=== PATIENT | female | born 1935 | race Caucasian/White ===

== ENCOUNTER 2020-03-07 09:36 | Observation (INO) | payer MEDICARE, BC ==
[2020-03-07] MEDS ORDERED: Sodium Chloride 0.9% 1,000 ML IV ONE (09:42)
[2020-03-07] MEDS ORDERED: Sodium Chloride 0.9% 10 ML Syringe FLUSH PRN (09:42)
[2020-03-07] MEDS ORDERED: Sodium Chloride 0.9% 2.5 ML Syringe FLUSH PRN (09:42)
[2020-03-07] MEDS ORDERED: Pantoprazole 40 MG in Sodium Chloride 0.9% 20 ML IVPUSH ONE (09:44)
--- NOTE | 2020-03-07 09:46 | EDM.PDOC ---
ED HPI GENERAL MEDICAL PROBLEM - General Chief Complaint: Gastrointestinal Problem Stated Complaint: RECTAL BLEEDING Time Seen by Provider: 03/07/20 09:38 - History of Present Illness INITIAL COMMENTS - FREE TEXT/NARRATIVE: 85-year-old female presents with rectal bleeding since yesterday. She had 3 episodes of dark colored diarrhea yesterday, associated with lower abdominal pain that is dull, mild, constant, with no alleviating factors. Denies fever, chills, nausea, vomiting, dysuria, back pain, chest pain, shortness of breath. ROS: A 10-point review of systems, other than pertinent positives and negatives as stated per HPI, is otherwise negative PHYSICAL EXAM General: AOx4, GCS = 15, No distress HEENT: dry mucous membrane, no pale conjunctiva Neck: supple, no meningismus, no Kernig or Brudzinski Cardiac: S1S2 RRR Respiratory: CTAB, no crackles or rales, no wheezing Abdomen: Soft, left lower quadrant tender, no rebound or guarding, nondistended , no pulsatile mass. Back: nontender Musculoskeletal: NVI distally, no deformity Neuro: No focal deficits, CN 2 - 12 WNL. MEDICAL DECISION MAKING: I reviewed the patients past medical records, lab and radiographic findings. I discussed the case with family members. My differential diagnosis included: Diverticulosis, colitis, obstruction. lower abdomen Pain Score (Numeric/FACES): 3 - Related Data Allergies Allergy/AdvReac Type Severity Reaction Status Date / Time Penicillins Allergy Other Verified 03/07/20 14:28 Home Meds: Home Meds Aspirin 175 mg PO DAILY 08/19/18 [History] Melatonin 3 mg PO BEDTIME 08/19/18 [History] Zolpidem [Ambien] 1 dose PO BEDTIME PRN 03/07/20 [History] Past Medical History - Past Health History Medical/Surgical History: Denies Medical/Surgical History - Infectious Disease History Infectious Disease History: Reports: None Social & Family History - Family History Family Medical History: Noncontributory - Caffeine Use Caffeine Use: Reports: None ED ROS GENERAL - Review of Systems Review Of Systems: See Below (see dictation) ED EXAM, GI/ABD - Physical Exam Exam: See Below (See dictation) Course - Vital Signs Last Recorded V/S: Last Vital Signs Temp 98.6 F 03/07/20 14:20 Pulse 77 03/07/20 14:20 Resp 16 03/07/20 14:20 BP 133/61 03/07/20 14:20 Pulse Ox 98 03/07/20 14:20 - Orders/Labs/Meds Orders: Active Orders 24 hr Category Date Time Status Ciprofloxacin in D5W [Cipro in D5W 400 MG/200 ML] 400 Med 03/07/20 12:30 Active mg Premix Bag 1 bag IV Q12H Sodium Chloride 0.9% [Saline Flush] Med 03/07/20 09:42 Active 10 ml FLUSH ASDIRECTED PRN Sodium Chloride 0.9% [Saline Flush] Med 03/07/20 09:42 Active 2.5 ml FLUSH ASDIRECTED PRN Saline Lock Insert [OM.PC] Stat Oth 03/07/20 09:42 Ordered Medication Orders Albuterol/Ipratropium (Duoneb 3.0-0.5 Mg/3 Ml) 3 ml NEB Q4HRRT PRN PRN Reason: Shortness Of Breath/wheezing Ciprofloxacin/Dextrose 400 mg/ (Premix) 200 mls @ 200 mls/hr IV Q12H RHETT Last Admin: 03/07/20 12:51 Dose: 200 mls/hr Lactated Ringer's (Ringers, Lactated) 1,000 mls @ 125 mls/hr IV ASDIRECTED RHETT Last Admin: 03/07/20 14:46 Dose: 125 mls/hr Pantoprazole Sodium 40 mg/ (Sodium Chloride) 10 mls @ 300 mls/hr IV BID RHETT Metronidazole 500 mg/ Premix 100 mls @ 100 mls/hr IV Q8H RHETT Ondansetron HCl (Zofran) 4 mg IVPUSH Q4H PRN PRN Reason: Nausea/Vomiting Sodium Chloride (Saline Flush) 10 ml FLUSH ASDIRECTED PRN PRN Reason: Keep Vein Open Last Admin: 03/07/20 10:05 Dose: 10 ml Sodium Chloride (Saline Flush) 2.5 ml FLUSH ASDIRECTED PRN PRN Reason: Keep Vein Open Last Admin: 03/07/20 10:05 Dose: 2.5 ml Labs: Laboratory Tests 03/07/20 03/07/20 03/07/20 Range/Units 10:05 10:05 11:39 WBC 18.72 H (4.0-11.0) K/uL RBC 5.10 (4.30-5.90) M/uL Hgb 15.7 (12.0-16.0) g/dL Hct 47.6 H (36.0-46.0) % MCV 93.3 (80.0-98.0) fL MCH 30.8 (27.0-32.0) pg MCHC 33.0 (31.0-37.0) g/dL RDW Std Deviation 43.8 (28.0-62.0) fl RDW Coeff of [place] 13 (11.0-15.0) % Plt Count 402 H (150-400) K/uL MPV 11.00 (7.40-12.00) fL Neut % (Auto) 83.6 H (48.0-80.0) % Lymph % (Auto) 5.9 L (16.0-40.0) % [place] % (Auto) 10.4 (0.0-15.0) % Eos % (Auto) 0.0 (0.0-7.0) % Baso % (Auto) 0.1 (0.0-1.5) % Neut # (Auto) 15.7 H (1.4-5.7) K/uL Lymph # (Auto) 1.1 (0.6-2.4) K/uL [place] # (Auto) 1.9 H (0.0-0.8) K/uL Eos # (Auto) 0.0 (0.0-0.7) K/uL Baso # (Auto) 0.0 (0.0-0.1) K/uL Nucleated RBC % 0.0 /100WBC Nucleated RBCs # 0 K/uL Sodium 135 L (136-145) mmol/L Potassium 3.9 (3.5-5.1) mmol/L Chloride 99 (98-107) mmol/L Carbon Dioxide 23.2 (21.0-32.0) mmol/L BUN 23 H (7.0-18.0) mg/dL Creatinine 1.3 H (0.6-1.0) mg/dL Est Cr Clr Drug Dosing 24.01 mL/min Estimated GFR (MDRD) 38.7 ml/min Glucose 188 H (74-106) mg/dL Calcium 8.7 (8.5-10.1) mg/dL Total Bilirubin 1.5 H (0.2-1.0) mg/dL AST 16 (15-37) IU/L ALT 21 (14-63) IU/L Alkaline Phosphatase 68 (46-116) U/L Total Protein 6.5 (6.4-8.2) g/dL Albumin 3.2 L (3.4-5.0) g/dL Globulin 3.3 (2.6-4.0) g/dL Albumin/Globulin Ratio 1.0 (0.9-1.6) Lipase 27 L (73-393) U/L Urine Color YELLOW Urine Appearance CLEAR Urine pH 5.0 (5.0-8.0) Ur Specific [place] 1.020 (1.001-1.035) Urine Protein NEGATIVE (NEGATIVE) mg/dL Urine Glucose (UA) NEGATIVE (NEGATIVE) mg/dL Urine Ketones TRACE H (NEGATIVE) mg/dL Urine Occult Blood NEGATIVE (NEGATIVE) Urine Nitrite NEGATIVE (NEGATIVE) Urine Bilirubin NEGATIVE (NEGATIVE) Urine Urobilinogen 0.2 (<2.0) EU/dL Ur Leukocyte Esterase NEGATIVE (NEGATIVE) Urine RBC 0-1 (0-2/HPF) Urine WBC 1-3 (0-5/HPF) Ur Epithelial Cells FEW (NONE-FEW) Urine Bacteria FEW (NEGATIVE) Meds: Medications Generic Name Dose Route Start Last Admin Trade Name Freq PRN Reason Stop Dose Admin Albuterol/Ipratropium 3 ml 03/07/20 14:00 Duoneb 3.0-0.5 Mg/3 Ml NEB Q4HRRT PRN Shortness Of Breath/wheezing Ciprofloxacin/Dextrose 400 mg/ 200 mls @ 200 mls/hr 03/07/20 12:30 03/07/20 12:51 Premix IV 200 mls/hr Q12H RHETT Administration Lactated Ringer's 1,000 mls @ 125 mls/hr 03/07/20 14:00 03/07/20 14:46 Ringers, Lactated IV 125 mls/hr ASDIRECTED RHETT Administration Pantoprazole Sodium 40 mg/ 10 mls @ 300 mls/hr 03/07/20 21:00 Sodium Chloride IV BID RHETT Metronidazole 500 mg/ Premix 100 mls @ 100 mls/hr 03/07/20 21:00 IV Q8H RHETT Ondansetron HCl 4 mg 03/07/20 14:00 Zofran IVPUSH Q4H PRN Nausea/Vomiting Sodium Chloride 10 ml 03/07/20 09:42 03/07/20 10:05 Saline Flush FLUSH 10 ml ASDIRECTED PRN Administration Keep Vein Open Sodium Chloride 2.5 ml 03/07/20 09:42 03/07/20 10:05 Saline Flush FLUSH 2.5 ml ASDIRECTED PRN Administration Keep Vein Open Discontinued Medications Generic Name Dose Route Start Last Admin Trade Name Freq PRN Reason Stop Dose Admin Sodium Chloride 1,000 mls @ 999 mls/hr 03/07/20 09:42 03/07/20 10:05 Normal Saline IV 03/07/20 10:42 999 mls/hr BOLUS ONE Administration Pantoprazole Sodium 40 mg/ 20 mls @ 420 mls/hr 03/07/20 09:44 03/07/20 10:05 Sodium Chloride IVPUSH 03/07/20 09:46 420 mls/hr ONETIME ONE Administration Metronidazole 500 mg/ Premix 100 mls @ 100 mls/hr 03/07/20 12:29 03/07/20 13: 52 IV 03/07/20 13:28 100 mls/hr ONETIME ONE Administration Metronidazole 500 mg/ Premix 100 mls @ 100 mls/hr 03/07/20 20:00 IV Q8H RHETT Iopamidol 61 ml 03/07/20 11:39 03/07/20 11:39 Isovue Multipack-370 (76%) IVPUSH 03/07/20 11:40 61 ml ONETIME ONE Administration - Re-Assessments/Exams Free Text/Narrative Re-Assessment/Exam: 03/07/20 12:35 -case discussed with Dr. Garcia, she agrees to assume care at this point. Admit to obs/telemetry with consult to Cole Skinner. Her documentation supersedes all other documentation on this patient with regard to any conflicts or discrepancies from this point forward. Any emergency conditions have been treated to the ability of the ED prior to admission. Paging Dr. Skinner now. Departure - Departure Time of Disposition: 11:10 Disposition: Refer to Observation Condition: Good Clinical Impression: Colitis, GI bleed - Discharge Information Sepsis Event Note - Focused Exam Vital Signs: Vital Signs Temp Pulse Resp BP Pulse Ox 03/07/20 09:49 96.2 F L 88 16 137/70 98 Date Exam was Performed: 03/07/20 Time Exam was Performed: 16:12 - My Orders Last 24 Hours: My Active Orders 03/07/20 09:42 Sodium Chloride 0.9% [Saline Flush] 10 ml FLUSH ASDIRECTED PRN Sodium Chloride 0.9% [Saline Flush] 2.5 ml FLUSH ASDIRECTED PRN Saline Lock Insert [OM.PC] Stat 03/07/20 12:30 Ciprofloxacin in D5W [Cipro in D5W 400 MG/200 ML] 400 mg Premix Bag 1 bag IV Q12H - Assessment/Plan Last 24 Hours: My Active Orders 03/07/20 09:42 Sodium Chloride 0.9% [Saline Flush] 10 ml FLUSH ASDIRECTED PRN Sodium Chloride 0.9% [Saline Flush] 2.5 ml FLUSH ASDIRECTED PRN Saline Lock Insert [OM.PC] Stat 03/07/20 12:30 Ciprofloxacin in D5W [Cipro in D5W 400 MG/200 ML] 400 mg Premix Bag 1 bag IV Q12H
[2020-03-07 10:48] LABS: CARBON DIOXIDE,CO2 23.2 mmol/L (21.0-32.0); POTASSIUM,K 3.9 mmol/L (3.5-5.1)
[2020-03-07] MEDS ORDERED: Iopamidol 755 MG/ML 500 ML Multipack Bottle IVPUSH ONE (11:39)
--- NOTE | 2020-03-07 12:08 | CT ---
CT abdomen and pelvis Technique: Multiple axial sections were obtained from above the dome of the diaphragm inferiorly through the pubic symphysis. Intravenous contrast was utilized. No oral contrast has been given. Findings: Stomach is intrathoracic in location compatible with diaphragmatic hernia. Visualized lung bases show nothing acute. Liver contains no focal abnormality. Spleen appears within normal limits. Adrenal glands show no nodule. Pancreas shows no discrete abnormality. Gallstones are seen within the gallbladder. Bowel wall thickening is seen within the sigmoid colon and descending colon with stool noted within the right and transverse colon. Findings are compatible with nonspecific colitis. Numerous diverticuli are seen within the sigmoid colon. Aorta shows atherosclerotic change without aneurysm. Atherosclerotic change continues into the iliac vessels. Bladder appears to be dilated. Several diverticuli are seen off the bladder with largest on the left side measuring 6.4 cm in size. Kidneys show symmetric contrast enhancement without hydronephrosis or mass. Minimal fluid is noted around the liver and spleen which is most likely reactive from the colonic process. Bone window settings were reviewed which show scattered degenerative change within the spine as well as within both hips. No acute osseous finding is appreciated. Impression: 1. Bowel wall thickening within the sigmoid and descending colon. This is compatible with a nonspecific colitis. 2. Numerous diverticuli seen within the sigmoid colon. 3. Dilated and urine filled bladder with bladder diverticuli. 4. Minimal fluid around the liver and spleen most likely reactive from the colonic process. 5. Other findings as noted above which are nonacute. Diagnostic code #3 This report was dictated in MDT
[2020-03-07] MEDS ORDERED: metroNIDAZOLE/Normal Saline 500 MG in Premix Bag 1 BAG IV ONE (12:29)
[2020-03-07] MEDS: Ciprofloxacin in D5W 400 MG in Premix Bag 1 BAG IV SCH ×4 (12:51→23:38)
[2020-03-07] MEDS ORDERED: Albuterol/Ipratropium 3.0-0.5 MG/3 ML Neb Soln NEB PRN (14:00)
[2020-03-07] MEDS ORDERED: Ondansetron 4 MG/2 ML SDV IVPUSH PRN (14:00)
--- NOTE | 2020-03-07 14:10 | PCM.HP.2 ---
H&P History of Present Illness - General Date of Service: 03/07/20 Admit Problem/Dx: Admission Diagnosis/Problem Admission Diagnosis/Problem Colitis - History of Present Illness Initial Comments - Free Text/Narative: Patient is a 85 y/o F with no PMH of recent colitis, treated with PO antibiotics in nov. Patient states thaty for past 2 days she has been having vague abdominal pain, she had an episode of explosive dirrhea which was non- bloody, followed by bloody stools. She describes the blood as dark red mixed with bright red. Patient came in to ER for further evalaution. Patient states she has slight Nausea but no vomitting. Abdominal pain is 3-4 in intensity. In the ER labs were mostly benign with stable hemoglobin. Hemodynamically she was stable. CT scan of abdomen was significant for findings suggestive of colitis. LPatient recicved IV fluids and IV antibiotics and was admitted for further management of colitis and GI bleeding. Patient denied chest pain, syncope, prior bleeding episodes. She has had colonoscopy almost 15 years back. lower abdomen Pain Score (Numeric/FACES): 3 - Related Data Allergies/Adverse Reactions: Allergies Allergy/AdvReac Type Severity Reaction Status Date / Time Penicillins Allergy Other Verified 03/07/20 14:28 Home Medications: Home Meds Aspirin 175 mg PO DAILY 08/19/18 [History] Melatonin 3 mg PO BEDTIME 08/19/18 [History] Zolpidem [Ambien] 1 dose PO BEDTIME PRN 03/07/20 [History] Past Medical History - Past Health History Medical/Surgical History: Denies Medical/Surgical History HEENT History: Reports: Impaired Vision Cardiovascular History: Reports: None Respiratory History: Reports: None Gastrointestinal History: Reports: None Genitourinary History: Reports: None RIVET HEATER GAS History: Reports: None Musculoskeletal History: Reports: Arthritis Neurological History: Reports: None Psychiatric History: Reports: None Endocrine/Metabolic History: Reports: None Hematologic History: Reports: Other (See Below) Other Hematologic History: low potassium in past Immunologic History: Reports: None Oncologic (Cancer) History: Reports: None Dermatologic History: Reports: None - Infectious Disease History Infectious Disease History: Reports: None - Past Surgical History Head Surgeries/Procedures: Reports: None HEENT Surgical History: Reports: None Cardiovascular Surgical History: Reports: None Respiratory Surgical History: Reports: None GI Surgical History: Reports: None Female Surgical History: Reports: None Endocrine Surgical History: Reports: None Neurological Surgical History: Reports: None Musculoskeletal Surgical History: Reports: None Oncologic Surgical History: Reports: None Dermatological Surgical History: Reports: None Social & Family History - Family History Family Medical History: Noncontributory - Tobacco Use Smoking Status *Q: Never Smoker Second Hand Smoke Exposure: No - Caffeine Use Caffeine Use: Reports: None - Recreational Drug Use Recreational Drug Use: No H&P Review of Systems - Review of Systems: Review Of Systems: See Below General: Denies: Fever, Chills, Malaise, Weakness, Fatigue HEENT: Denies: Dysphasia, Glasses, Headaches Pulmonary: Denies: Shortness of Breath, Wheezing, Pleuritic Chest Pain Cardiovascular: Denies: Chest Pain, Palpitations, Dyspnea on Exertion Gastrointestinal: Reports: Anorexia, Black Stool, Bloody Stool, Diarrhea, Decreased Appetite. Denies: Abdominal Pain, Constipation, Difficulty Swallowing , Distension, Hematemesis Genitourinary: Denies: Dysuria, Frequency, Burning Musculoskeletal: Denies: Neck Pain, Shoulder Pain, Arm Pain Skin: Denies: Cyanosis, Jaundice, Mottled Psychiatric: Denies: Confusion, Depression, Mood Lability Neurological: Denies: Confusion, Dizziness, Headache Hematologic/Lymphatic: Denies: Anemia, Easy Bleeding, Easy Bruising Exam - Exam Exam: See Below - Vital Signs Vital Signs: Last Vital Signs Temp 35.7 C L 03/07/20 09:49 Pulse 76 03/07/20 13:41 Resp 16 03/07/20 13:41 BP 127/53 L 03/07/20 13:41 Pulse Ox 98 03/07/20 13:41 Weight: 49.895 kg - Exam General: Alert, Oriented Neck: Supple, Trachea Midline Lungs: Clear to Auscultation, Normal Respiratory Effort Cardiovascular: Regular Rate, Regular Rhythm GI/Abdominal Exam: Normal Bowel Sounds, Soft, Tender Peripheral Pulses: 3+: Dorsalis Pedis (L), Dorsalis Pedis (R) - Patient Data Lab Results Last 24 hrs: Laboratory Results - last 24 hr 03/07/20 03/07/20 03/07/20 Range/Units 10:05 10:05 11:39 WBC 18.72 H (4.0-11.0) K/uL RBC 5.10 (4.30-5.90) M/uL Hgb 15.7 (12.0-16.0) g/dL Hct 47.6 H (36.0-46.0) % MCV 93.3 (80.0-98.0) fL MCH 30.8 (27.0-32.0) pg MCHC 33.0 (31.0-37.0) g/dL RDW Std Deviation 43.8 (28.0-62.0) fl RDW Coeff of [place] 13 (11.0-15.0) % Plt Count 402 H (150-400) K/uL MPV 11.00 (7.40-12.00) fL Neut % (Auto) 83.6 H (48.0-80.0) % Lymph % (Auto) 5.9 L (16.0-40.0) % [place] % (Auto) 10.4 (0.0-15.0) % Eos % (Auto) 0.0 (0.0-7.0) % Baso % (Auto) 0.1 (0.0-1.5) % Neut # (Auto) 15.7 H (1.4-5.7) K/uL Lymph # (Auto) 1.1 (0.6-2.4) K/uL [place] # (Auto) 1.9 H (0.0-0.8) K/uL Eos # (Auto) 0.0 (0.0-0.7) K/uL Baso # (Auto) 0.0 (0.0-0.1) K/uL Nucleated RBC % 0.0 /100WBC Nucleated RBCs # 0 K/uL Sodium 135 L (136-145) mmol/L Potassium 3.9 (3.5-5.1) mmol/L Chloride 99 (98-107) mmol/L Carbon Dioxide 23.2 (21.0-32.0) mmol/L BUN 23 H (7.0-18.0) mg/dL Creatinine 1.3 H (0.6-1.0) mg/dL Est Cr Clr Drug Dosing 24.01 mL/min Estimated GFR (MDRD) 38.7 ml/min Glucose 188 H (74-106) mg/dL Calcium 8.7 (8.5-10.1) mg/dL Total Bilirubin 1.5 H (0.2-1.0) mg/dL AST 16 (15-37) IU/L ALT 21 (14-63) IU/L Alkaline Phosphatase 68 (46-116) U/L Total Protein 6.5 (6.4-8.2) g/dL Albumin 3.2 L (3.4-5.0) g/dL Globulin 3.3 (2.6-4.0) g/dL Albumin/Globulin Ratio 1.0 (0.9-1.6) Lipase 27 L (73-393) U/L Urine Color YELLOW Urine Appearance CLEAR Urine pH 5.0 (5.0-8.0) Ur Specific [place] 1.020 (1.001-1.035) Urine Protein NEGATIVE (NEGATIVE) mg/dL Urine Glucose (UA) NEGATIVE (NEGATIVE) mg/dL Urine Ketones TRACE H (NEGATIVE) mg/dL Urine Occult Blood NEGATIVE (NEGATIVE) Urine Nitrite NEGATIVE (NEGATIVE) Urine Bilirubin NEGATIVE (NEGATIVE) Urine Urobilinogen 0.2 (<2.0) EU/dL Ur Leukocyte Esterase NEGATIVE (NEGATIVE) Urine RBC 0-1 (0-2/HPF) Urine WBC 1-3 (0-5/HPF) Ur Epithelial Cells FEW (NONE-FEW) Urine Bacteria FEW (NEGATIVE) Result Diagrams: 03/07/20 10:05 03/07/20 10:05 Sepsis Event Note - Evaluation Sepsis Screening Result: No Definite Risk - Focused Exam Vital Signs: Vital Signs Temp Pulse Resp BP Pulse Ox 03/07/20 13:41 76 16 127/53 L 98 03/07/20 12:53 76 16 119/67 97 03/07/20 09:49 35.7 C L 88 16 137/70 98 Date Exam was Performed: 03/07/20 Time Exam was Performed: 19:42 - Problem List (1) Colitis SNOMED Code(s): 36088265 ICD Code: K52.9 - NONINFECTIVE GASTROENTERITIS AND COLITIS, UNSPECIFIED Status: Acute Current Visit: Yes (2) GI bleed SNOMED Code(s): 34095858 ICD Code: K92.2 - GASTROINTESTINAL HEMORRHAGE, UNSPECIFIED Status: Acute Current Visit: Yes Problem List Initiated/Reviewed/Updated: Yes Orders Last 24hrs: Active Orders 24 hr Category Date Time Status Admission Status [Patient Status] [ADT] Stat ADT 03/07/20 12:31 Active Ambulate [RC] ASDIRECTED Care 03/07/20 14:00 Active Ambulate [RC] PER UNIT ROUTINE Care 03/07/20 14:02 Active Notify Provider Consults [RC] ASDIRECTED Care 03/07/20 14:06 Active Oxygen Therapy [RC] PRN Care 03/07/20 14:00 Active Pulse Oximetry [RC] PRN Care 03/07/20 14:01 Active RT Aerosol Therapy [RC] ASDIRECTED Care 03/07/20 14:05 Active VTE/DVT Education [RC] PER UNIT ROUTINE Care 03/07/20 14:00 Active Vital Signs [RC] Q4H Care 03/07/20 14:00 Active Consult to Physician [CONS] Routine Cons 03/07/20 14:00 Active Nothing per Oral Now Diet [DIET] Diet 03/07/20 Breakfast Active CULTURE BLOOD [BC] Stat Lab 03/07/20 14:10 Ordered CULTURE BLOOD [BC] Stat Lab 03/07/20 14:10 Ordered Albuterol/Ipratropium [DuoNeb 3.0-0.5 MG/3 ML] Med 03/07/20 14:00 Ordered 3 ml NEB Q4HRRT PRN Ciprofloxacin in D5W [Cipro in D5W 400 MG/200 ML] 400 Med 03/07/20 12:30 Active mg Premix Bag 1 bag IV Q12H Lactated Ringers [Ringers, Lactated] 1,000 ml Med 03/07/20 14:00 Ordered IV ASDIRECTED Ondansetron [Zofran] Med 03/07/20 14:00 Ordered 4 mg IVPUSH Q4H PRN Pantoprazole [ProTONIX IV] 40 mg Med 03/07/20 21:00 Ordered Sodium Chloride 0.9% [Normal Saline] 10 ml IV BID Sodium Chloride 0.9% [Saline Flush] Med 03/07/20 09:42 Active 10 ml FLUSH ASDIRECTED PRN Sodium Chloride 0.9% [Saline Flush] Med 03/07/20 09:42 Active 2.5 ml FLUSH ASDIRECTED PRN metroNIDAZOLE/Normal Saline [Flagyl 500 MG in NS 100 ML Med 03/07/20 20:00 Ordered ] 500 mg Premix Bag 1 bag IV Q8H Blood Culture x2 Reflex Set [OM.PC] Stat Oth 03/07/20 14:09 Ordered Saline Lock Insert [OM.PC] Stat Oth 03/07/20 09:42 Ordered Sequential Compression Device [OM.PC] Per Unit Routine Oth 03/07/20 14:02 Ordered Resuscitation Status Routine Resus Stat 03/07/20 14:00 Ordered Medication Orders Albuterol/Ipratropium (Duoneb 3.0-0.5 Mg/3 Ml) 3 ml NEB Q4HRRT PRN PRN Reason: Shortness Of Breath/wheezing Ciprofloxacin/Dextrose 400 mg/ (Premix) 200 mls @ 200 mls/hr IV Q12H RHETT Last Admin: 03/07/20 12:51 Dose: 200 mls/hr Lactated Ringer's (Ringers, Lactated) 1,000 mls @ 125 mls/hr IV ASDIRECTED RHETT Pantoprazole Sodium 40 mg/ (Sodium Chloride) 10 mls @ 300 mls/hr IV BID RHETT Metronidazole 500 mg/ Premix 100 mls @ 100 mls/hr IV Q8H RHETT Ondansetron HCl (Zofran) 4 mg IVPUSH Q4H PRN PRN Reason: Nausea/Vomiting Sodium Chloride (Saline Flush) 10 ml FLUSH ASDIRECTED PRN PRN Reason: Keep Vein Open Last Admin: 03/07/20 10:05 Dose: 10 ml Sodium Chloride (Saline Flush) 2.5 ml FLUSH ASDIRECTED PRN PRN Reason: Keep Vein Open Last Admin: 03/07/20 10:05 Dose: 2.5 ml Assessment/Plan Comment:: 85 y/o F admitted for colitis and GI bleeding CT scan abdomen noted Admit to tele Start IVF, keep 2 large bore needles Type and screen IV Cipro and Flagyl Serial HnH IV PPI BID Morphine for pain Trend creatinine, unsure of baseline, likely pre-renal injury Surgery on board
[2020-03-07] MEDS: Lactated Ringers 1,000 ML IV SCH (14:46)
--- NOTE | 2020-03-07 16:17 | PCM.SN.2 ---
- Free Text/Narrative Note: pt seen, chart reviewed; colitis w bowel wall thickening; agree w npo, iv abx; pain resolved, then po diet; would benefit from colonoscopy when pain completely resolved, likely 3 - 4 wks from now; will follow pt w you; see [id number]
[2020-03-07] MEDS ORDERED: Morphine 2 MG/ML SYRINGE IVPUSH PRN (16:38)
[2020-03-07] MEDS: Acetaminophen 500 MG Tab PO PRN (17:49)
--- NOTE | 2020-03-07 18:08 | CONS ---
DATE OF CONSULTATION: 03/07/2020 DATE OF : 1935 PRIMARY CARE PHYSICIAN: Xin Chaudhary NP REASON FOR CONSULTATION: The patient was called for consult for colitis and GI bleeding, and the patient was seen shortly after. HISTORY OF PRESENT ILLNESS: The patient is an 85-year-old lady, complained over 1-1/2-day history of gradual onset of abdominal pain and also with bright red blood per rectum. Sought help in the emergency room, got a CAT scan, it shows colitis, and was admitted to hospitalist for further management. Surgery was consulted for the colitis and GI bleeding management. The patient denied shortness of breath. Denied chest pain. Denied poor appetite. The patient remarked the pain is about 3 or 4 on the pain scale and is more annoying than pain and had bowel movement yesterday and was a well-formed stool, but patient kind of described a small caliber or changed it to become a stool ball. Denied black tarry stool. Denied weight loss without intention. Past colonoscopy is at least 15 to 20 years ago. ALLERGIES: Please refer to nursing for details. MEDICATIONS: Please refer to nursing for details. FAMILY HISTORY: Noncontributory. SURGICAL HISTORY: The patient has normal vaginal delivery x3. MEDICAL HISTORY: Borderline diabetic and no CT, CVA, hypertension. PHYSICAL EXAMINATION: GENERAL: A very pleasant lady, lying in bed, with a hand behind her head. Very polite and pleasant, engaging with examination. HEENT: Normocephalic and atraumatic. Sclerae are anicteric. LUNGS: Clear to auscultation. HEART: Regular rate and rhythm. ABDOMEN: Soft, but is protruding. No pulsating tender midline abdominal structure. LABORATORY VALUE: Upon consultation, white count is 18.7, H and H are 15.7 and 47.6, platelets are 402. Sodium 135, potassium 3.9, BUN is 23, creatinine is 1.3, and glucose 200. TBili is 1.5, AST and ALT of 16 and 21, alkaline phosphatase 68. UA, no signs or symptoms of infection. CAT scan shows a bowel wall thickening from sigmoid and descending colon compatible with nonspecific colitis and numerous thick diverticula within the sigmoid colon and bladder diverticula. IMPRESSION: Nonspecific colitis, and I agree with treating with antibiotic and followup. Follow the patient symptomatically, and when pain goes away, then start oral diet. The patient probably would benefit from a diagnostic colonoscopy about 3 to 4 weeks from now. The patient also mentioned the same thing happening about 3 weeks ago in doctor's office and was treated with antibiotic and the bleeding went away. All in all, with the patient's cachectic appearance and rectal bleeding two times, the patient definitely will benefit a colonoscopy after abdominal pain resolves. There is no plan for any procedure at the time being and colonoscopy after abdominal pain resolves. We will follow the patient with you. As always, thank you for the kind referral. IVONE CHOI /[id number]
[2020-03-07] MEDS ORDERED: metroNIDAZOLE/Normal Saline 500 MG in Premix Bag 1 BAG IV SCH (20:00)
[2020-03-07] MEDS: Pantoprazole 40 MG in Sodium Chloride 0.9% 10 ML IV SCH (20:45)
[2020-03-07] MEDS: metroNIDAZOLE/Normal Saline 500 MG in Premix Bag 1 BAG IV SCH (20:46)
[2020-03-08] MEDS: Lactated Ringers 1,000 ML IV SCH ×2 (02:18→14:56)
[2020-03-08] MEDS: metroNIDAZOLE/Normal Saline 500 MG in Premix Bag 1 BAG IV SCH ×3 (04:51→20:47)
[2020-03-08 06:17] LABS: CARBON DIOXIDE,CO2 27.8 mmol/L (21.0-32.0)
[2020-03-08] MEDS: Pantoprazole 40 MG in Sodium Chloride 0.9% 10 ML IV SCH ×2 (08:04→20:45)
--- NOTE | 2020-03-08 08:44 | PCM.PN ---
- General Info Date of Service: 03/08/20 Subjective Update: The patient reports she feels a little better. She had an episode of bloody diarrhea yesterday afternoon but this morning she had a normal bowel movement. Reports the abdominal pain is significantly better. Denies nausea/vomiting. Thinks she could try some jello. - Review of Systems General: Reports: No Symptoms HEENT: Reports: No Symptoms Pulmonary: Reports: No Symptoms Cardiovascular: Reports: No Symptoms Gastrointestinal: Reports: Abdominal Pain (improved), Hematochezia (improved) Genitourinary: Reports: No Symptoms Musculoskeletal: Reports: No Symptoms Skin: Reports: No Symptoms Neurological: Reports: No Symptoms Psychiatric: Reports: No Symptoms - Patient Data Vitals - Most Recent: Last Vital Signs Temp 98.2 F 03/08/20 04:00 Pulse 72 03/08/20 04:00 Resp 18 03/08/20 04:00 BP 141/60 H 03/08/20 04:00 Pulse Ox 94 L 03/08/20 04:00 Weight - Most Recent: 49.895 kg I&O - Last 24 Hours: Intake & Output 03/07/20 03/08/20 03/08/20 22:59 06:59 14:59 Intake Total 10 1618 Output Total 400 950 Balance -390 668 Lab Results Last 24 Hours: Laboratory Results - last 24 hr 03/07/20 03/07/20 03/07/20 Range/Units 10:05 10:05 11:39 WBC 18.72 H (4.0-11.0) K/uL RBC 5.10 (4.30-5.90) M/uL Hgb 15.7 (12.0-16.0) g/dL Hct 47.6 H (36.0-46.0) % MCV 93.3 (80.0-98.0) fL MCH 30.8 (27.0-32.0) pg MCHC 33.0 (31.0-37.0) g/dL RDW Std Deviation 43.8 (28.0-62.0) fl RDW Coeff of [place]son 13 (11.0-15.0) % Plt Count 402 H (150-400) K/uL MPV 11.00 (7.40-12.00) fL Neut % (Auto) 83.6 H (48.0-80.0) % Lymph % (Auto) 5.9 L (16.0-40.0) % [place] % (Auto) 10.4 (0.0-15.0) % Eos % (Auto) 0.0 (0.0-7.0) % Baso % (Auto) 0.1 (0.0-1.5) % Neut # (Auto) 15.7 H (1.4-5.7) K/uL Lymph # (Auto) 1.1 (0.6-2.4) K/uL [place] # (Auto) 1.9 H (0.0-0.8) K/uL Eos # (Auto) 0.0 (0.0-0.7) K/uL Baso # (Auto) 0.0 (0.0-0.1) K/uL Nucleated RBC % 0.0 /100WBC Nucleated RBCs # 0 K/uL Sodium 135 L (136-145) mmol/L Potassium 3.9 (3.5-5.1) mmol/L Chloride 99 (98-107) mmol/L Carbon Dioxide 23.2 (21.0-32.0) mmol/L BUN 23 H (7.0-18.0) mg/dL Creatinine 1.3 H (0.6-1.0) mg/dL Est Cr Clr Drug Dosing 24.01 mL/min Estimated GFR (MDRD) 38.7 ml/min Glucose 188 H (74-106) mg/dL Calcium 8.7 (8.5-10.1) mg/dL Phosphorus (2.6-4.7) mg/dL Magnesium (1.8-2.4) mg/dL Total Bilirubin 1.5 H (0.2-1.0) mg/dL AST 16 (15-37) IU/L ALT 21 (14-63) IU/L Alkaline Phosphatase 68 (46-116) U/L Total Protein 6.5 (6.4-8.2) g/dL Albumin 3.2 L (3.4-5.0) g/dL Globulin 3.3 (2.6-4.0) g/dL Albumin/Globulin Ratio 1.0 (0.9-1.6) Lipase 27 L (73-393) U/L Urine Color YELLOW Urine Appearance CLEAR Urine pH 5.0 (5.0-8.0) Ur Specific [place] 1.020 (1.001-1.035) Urine Protein NEGATIVE (NEGATIVE) mg/dL Urine Glucose (UA) NEGATIVE (NEGATIVE) mg/dL Urine Ketones TRACE H (NEGATIVE) mg/dL Urine Occult Blood NEGATIVE (NEGATIVE) Urine Nitrite NEGATIVE (NEGATIVE) Urine Bilirubin NEGATIVE (NEGATIVE) Urine Urobilinogen 0.2 (<2.0) EU/dL Ur Leukocyte Esterase NEGATIVE (NEGATIVE) Urine RBC 0-1 (0-2/HPF) Urine WBC 1-3 (0-5/HPF) Ur Epithelial Cells FEW (NONE-FEW) Urine Bacteria FEW (NEGATIVE) 03/07/20 03/08/20 03/08/20 Range/Units 21:04 04:53 04:53 WBC 11.32 H (4.0-11.0) K/uL RBC 4.31 (4.30-5.90) M/uL Hgb 14.1 12.9 (12.0-16.0) g/dL Hct 40.8 (36.0-46.0) % MCV 94.7 (80.0-98.0) fL MCH 29.9 (27.0-32.0) pg MCHC 31.6 (31.0-37.0) g/dL RDW Std Deviation 44.4 (28.0-62.0) fl RDW Coeff of Judson 13 (11.0-15.0) % Plt Count 277 (150-400) K/uL MPV 11.30 (7.40-12.00) fL Neut % (Auto) 84.0 H (48.0-80.0) % Lymph % (Auto) 7.8 L (16.0-40.0) % [place] % (Auto) 7.8 (0.0-15.0) % Eos % (Auto) 0.2 (0.0-7.0) % Baso % (Auto) 0.2 (0.0-1.5) % Neut # (Auto) 9.5 H (1.4-5.7) K/uL Lymph # (Auto) 0.9 (0.6-2.4) K/uL [place] # (Auto) 0.9 H (0.0-0.8) K/uL Eos # (Auto) 0.0 (0.0-0.7) K/uL Baso # (Auto) 0.0 (0.0-0.1) K/uL Nucleated RBC % 0.0 /100WBC Nucleated RBCs # 0 K/uL Sodium 140 (136-145) mmol/L Potassium 4.0 (3.5-5.1) mmol/L Chloride 107 (98-107) mmol/L Carbon Dioxide 27.8 (21.0-32.0) mmol/L BUN 13 (7.0-18.0) mg/dL Creatinine 0.9 (0.6-1.0) mg/dL Est Cr Clr Drug Dosing 34.69 mL/min Estimated GFR (MDRD) 59.2 ml/min Glucose 116 H (74-106) mg/dL Calcium 8.1 L (8.5-10.1) mg/dL Phosphorus 2.2 L (2.6-4.7) mg/dL Magnesium 1.8 (1.8-2.4) mg/dL Total Bilirubin (0.2-1.0) mg/dL AST (15-37) IU/L ALT (14-63) IU/L Alkaline Phosphatase (46-116) U/L Total Protein (6.4-8.2) g/dL Albumin (3.4-5.0) g/dL Globulin (2.6-4.0) g/dL Albumin/Globulin Ratio (0.9-1.6) Lipase (73-393) U/L Urine Color Urine Appearance Urine pH (5.0-8.0) Ur Specific [place] (1.001-1.035) Urine Protein (NEGATIVE) mg/dL Urine Glucose (UA) (NEGATIVE) mg/dL Urine Ketones (NEGATIVE) mg/dL Urine Occult Blood (NEGATIVE) Urine Nitrite (NEGATIVE) Urine Bilirubin (NEGATIVE) Urine Urobilinogen (<2.0) EU/dL Ur Leukocyte Esterase (NEGATIVE) Urine RBC (0-2/HPF) Urine WBC (0-5/HPF) Ur Epithelial Cells (NONE-FEW) Urine Bacteria (NEGATIVE) Adrian Results Last 24 Hours: Microbiology 03/07/20 14:32 Anaerobic Blood Culture - Final Blood - Venous - Lab Draw Med Orders - Current: Current Medications Acetaminophen (Tylenol Extra Strength) 500 mg PO Q6H PRN PRN Reason: Pain (mild 1-3) Last Admin: 03/07/20 17:49 Dose: 500 mg Albuterol/Ipratropium (Duoneb 3.0-0.5 Mg/3 Ml) 3 ml NEB Q4HRRT PRN PRN Reason: Shortness Of Breath/wheezing Ciprofloxacin/Dextrose 400 mg/ (Premix) 200 mls @ 200 mls/hr IV Q12H [facility] Last Admin: 03/07/20 23:38 Dose: 200 mls/hr Lactated Ringer's (Ringers, Lactated) 1,000 mls @ 125 mls/hr IV ASDIRECTED [facility] Last Admin: 03/08/20 02:18 Dose: 125 mls/hr Pantoprazole Sodium 40 mg/ (Sodium Chloride) 10 mls @ 300 mls/hr IV BID [facility] Last Admin: 03/08/20 08:04 Dose: 300 mls/hr Metronidazole 500 mg/ Premix 100 mls @ 100 mls/hr IV Q8H [facility] Last Admin: 03/08/20 04:51 Dose: 100 mls/hr Morphine Sulfate (Morphine) 2 mg IVPUSH Q4H PRN PRN Reason: Pain Ondansetron HCl (Zofran) 4 mg IVPUSH Q4H PRN PRN Reason: Nausea/Vomiting Sodium Chloride (Saline Flush) 10 ml FLUSH ASDIRECTED PRN PRN Reason: Keep Vein Open Last Admin: 03/07/20 10:05 Dose: 10 ml Sodium Chloride (Saline Flush) 2.5 ml FLUSH ASDIRECTED PRN PRN Reason: Keep Vein Open Last Admin: 03/07/20 10:05 Dose: 2.5 ml Discontinued Medications Sodium Chloride (Normal Saline) 1,000 mls @ 999 mls/hr IV BOLUS ONE Stop: 03/07/20 10:42 Last Admin: 03/07/20 10:05 Dose: 999 mls/hr Pantoprazole Sodium 40 mg/ (Sodium Chloride) 20 mls @ 420 mls/hr IVPUSH ONETIME ONE Stop: 03/07/20 09:46 Last Admin: 03/07/20 10:05 Dose: 420 mls/hr Metronidazole 500 mg/ Premix 100 mls @ 100 mls/hr IV ONETIME ONE Stop: 03/07/20 13:28 Last Admin: 03/07/20 13:52 Dose: 100 mls/hr Metronidazole 500 mg/ Premix 100 mls @ 100 mls/hr IV Q8H [facility] Iopamidol (Isovue Multipack-370 (76%)) 61 ml IVPUSH ONETIME ONE Stop: 03/07/20 11:40 Last Admin: 03/07/20 11:39 Dose: 61 ml - Exam General: Alert, Oriented, Cooperative Lungs: Clear to Auscultation, Normal Respiratory Effort Cardiovascular: Regular Rate, Regular Rhythm GI/Abdominal Exam: Normal Bowel Sounds, Soft, Non-Tender, No Distention Extremities: No Pedal Edema Skin: Warm, Dry Neurological: No New Focal Deficit Psy/Mental Status: Alert, Normal Affect, Normal Mood Sepsis Event Note - Evaluation Sepsis Screening Result: No Definite Risk - Focused Exam Vital Signs: Vital Signs Temp Pulse Resp BP Pulse Ox 03/08/20 04:00 98.2 F 72 18 141/60 H 94 L 03/08/20 00:00 97.8 F 70 16 113/77 97 Date Exam was Performed: 03/08/20 Time Exam was Performed: 11:29 - Problem List Review Problem List Initiated/Reviewed/Updated: Yes - My Orders Last 24 Hours: My Active Orders 03/08/20 07:19 Intake and Output [RC] ASDIRECTED - Plan Plan:: 1. Colitis with bleeding- Hemoglobin stable. Continue Cipro and Flagyl. Continue IVF. Advance diet from NPO to clears. Morphine prn pain. Dr. Skinner, consulted, recommended outpatient colonoscopy in 3-4 weeks. 2. TANO- resolved with IVF.
--- NOTE | 2020-03-08 11:11 | PCM.SURGPN ---
- General Info Date of Service: 03/08/20 - Review of Systems General: Reports: No Symptoms (had BM, felt a lot better, still slightly hurt LLQ, no rebound) - Patient Data Vitals - Most Recent: Last Vital Signs Temp 99.7 F 03/08/20 08:35 Pulse 70 03/08/20 08:35 Resp 15 03/08/20 08:35 BP 119/58 L 03/08/20 08:35 Pulse Ox 96 03/08/20 08:35 Weight - Most Recent: 110 lb I&O - Last 24 Hours: Intake & Output 03/07/20 03/08/20 03/08/20 22:59 06:59 14:59 Intake Total 10 1618 Output Total 400 950 Balance -390 668 Lab Results Last 24 Hrs: Laboratory Results - last 24 hr 03/07/20 03/07/20 03/08/20 Range/Units 11:39 21:04 04:53 WBC 11.32 H (4.0-11.0) K/uL RBC 4.31 (4.30-5.90) M/uL Hgb 14.1 12.9 (12.0-16.0) g/dL Hct 40.8 (36.0-46.0) % MCV 94.7 (80.0-98.0) fL MCH 29.9 (27.0-32.0) pg MCHC 31.6 (31.0-37.0) g/dL RDW Std Deviation 44.4 (28.0-62.0) fl RDW Coeff of Judson 13 (11.0-15.0) % Plt Count 277 (150-400) K/uL MPV 11.30 (7.40-12.00) fL Neut % (Auto) 84.0 H (48.0-80.0) % Lymph % (Auto) 7.8 L (16.0-40.0) % [place] % (Auto) 7.8 (0.0-15.0) % Eos % (Auto) 0.2 (0.0-7.0) % Baso % (Auto) 0.2 (0.0-1.5) % Neut # (Auto) 9.5 H (1.4-5.7) K/uL Lymph # (Auto) 0.9 (0.6-2.4) K/uL [place] # (Auto) 0.9 H (0.0-0.8) K/uL Eos # (Auto) 0.0 (0.0-0.7) K/uL Baso # (Auto) 0.0 (0.0-0.1) K/uL Nucleated RBC % 0.0 /100WBC Nucleated RBCs # 0 K/uL Sodium (136-145) mmol/L Potassium (3.5-5.1) mmol/L Chloride (98-107) mmol/L Carbon Dioxide (21.0-32.0) mmol/L BUN (7.0-18.0) mg/dL Creatinine (0.6-1.0) mg/dL Est Cr Clr Drug Dosing mL/min Estimated GFR (MDRD) ml/min Glucose (74-106) mg/dL Calcium (8.5-10.1) mg/dL Phosphorus (2.6-4.7) mg/dL Magnesium (1.8-2.4) mg/dL Urine Color YELLOW Urine Appearance CLEAR Urine pH 5.0 (5.0-8.0) Ur Specific [place] 1.020 (1.001-1.035) Urine Protein NEGATIVE (NEGATIVE) mg/dL Urine Glucose (UA) NEGATIVE (NEGATIVE) mg/dL Urine Ketones TRACE H (NEGATIVE) mg/dL Urine Occult Blood NEGATIVE (NEGATIVE) Urine Nitrite NEGATIVE (NEGATIVE) Urine Bilirubin NEGATIVE (NEGATIVE) Urine Urobilinogen 0.2 (<2.0) EU/dL Ur Leukocyte Esterase NEGATIVE (NEGATIVE) Urine RBC 0-1 (0-2/HPF) Urine WBC 1-3 (0-5/HPF) Ur Epithelial Cells FEW (NONE-FEW) Urine Bacteria FEW (NEGATIVE) 03/08/20 Range/Units 04:53 WBC (4.0-11.0) K/uL RBC (4.30-5.90) M/uL Hgb (12.0-16.0) g/dL Hct (36.0-46.0) % MCV (80.0-98.0) fL MCH (27.0-32.0) pg MCHC (31.0-37.0) g/dL RDW Std Deviation (28.0-62.0) fl RDW Coeff of [place]son (11.0-15.0) % Plt Count (150-400) K/uL MPV (7.40-12.00) fL Neut % (Auto) (48.0-80.0) % Lymph % (Auto) (16.0-40.0) % [place] % (Auto) (0.0-15.0) % Eos % (Auto) (0.0-7.0) % Baso % (Auto) (0.0-1.5) % Neut # (Auto) (1.4-5.7) K/uL Lymph # (Auto) (0.6-2.4) K/uL [place] # (Auto) (0.0-0.8) K/uL Eos # (Auto) (0.0-0.7) K/uL Baso # (Auto) (0.0-0.1) K/uL Nucleated RBC % /100WBC Nucleated RBCs # K/uL Sodium 140 (136-145) mmol/L Potassium 4.0 (3.5-5.1) mmol/L Chloride 107 (98-107) mmol/L Carbon Dioxide 27.8 (21.0-32.0) mmol/L BUN 13 (7.0-18.0) mg/dL Creatinine 0.9 (0.6-1.0) mg/dL Est Cr Clr Drug Dosing 34.69 mL/min Estimated GFR (MDRD) 59.2 ml/min Glucose 116 H (74-106) mg/dL Calcium 8.1 L (8.5-10.1) mg/dL Phosphorus 2.2 L (2.6-4.7) mg/dL Magnesium 1.8 (1.8-2.4) mg/dL Urine Color Urine Appearance Urine pH (5.0-8.0) Ur Specific [place] (1.001-1.035) Urine Protein (NEGATIVE) mg/dL Urine Glucose (UA) (NEGATIVE) mg/dL Urine Ketones (NEGATIVE) mg/dL Urine Occult Blood (NEGATIVE) Urine Nitrite (NEGATIVE) Urine Bilirubin (NEGATIVE) Urine Urobilinogen (<2.0) EU/dL Ur Leukocyte Esterase (NEGATIVE) Urine RBC (0-2/HPF) Urine WBC (0-5/HPF) Ur Epithelial Cells (NONE-FEW) Urine Bacteria (NEGATIVE) Adrian Results Last 24 Hrs: Microbiology 03/07/20 14:32 Anaerobic Blood Culture - Final Blood - Venous - Lab Draw Med Orders - Current: Current Medications Acetaminophen (Tylenol Extra Strength) 500 mg PO Q6H PRN PRN Reason: Pain (mild 1-3) Last Admin: 03/07/20 17:49 Dose: 500 mg Albuterol/Ipratropium (Duoneb 3.0-0.5 Mg/3 Ml) 3 ml NEB Q4HRRT PRN PRN Reason: Shortness Of Breath/wheezing Ciprofloxacin/Dextrose 400 mg/ (Premix) 200 mls @ 200 mls/hr IV Q12H [facility] Last Admin: 03/07/20 23:38 Dose: 200 mls/hr Lactated Ringer's (Ringers, Lactated) 1,000 mls @ 125 mls/hr IV ASDIRECTED [facility] Last Admin: 03/08/20 02:18 Dose: 125 mls/hr Pantoprazole Sodium 40 mg/ (Sodium Chloride) 10 mls @ 300 mls/hr IV BID [facility] Last Admin: 03/08/20 08:04 Dose: 300 mls/hr Metronidazole 500 mg/ Premix 100 mls @ 100 mls/hr IV Q8H [facility] Last Admin: 03/08/20 04:51 Dose: 100 mls/hr Morphine Sulfate (Morphine) 2 mg IVPUSH Q4H PRN PRN Reason: Pain Ondansetron HCl (Zofran) 4 mg IVPUSH Q4H PRN PRN Reason: Nausea/Vomiting Sodium Chloride (Saline Flush) 10 ml FLUSH ASDIRECTED PRN PRN Reason: Keep Vein Open Last Admin: 03/07/20 10:05 Dose: 10 ml Sodium Chloride (Saline Flush) 2.5 ml FLUSH ASDIRECTED PRN PRN Reason: Keep Vein Open Last Admin: 03/07/20 10:05 Dose: 2.5 ml Discontinued Medications Sodium Chloride (Normal Saline) 1,000 mls @ 999 mls/hr IV BOLUS ONE Stop: 03/07/20 10:42 Last Admin: 03/07/20 10:05 Dose: 999 mls/hr Pantoprazole Sodium 40 mg/ (Sodium Chloride) 20 mls @ 420 mls/hr IVPUSH ONETIME ONE Stop: 03/07/20 09:46 Last Admin: 03/07/20 10:05 Dose: 420 mls/hr Metronidazole 500 mg/ Premix 100 mls @ 100 mls/hr IV ONETIME ONE Stop: 03/07/20 13:28 Last Admin: 03/07/20 13:52 Dose: 100 mls/hr Metronidazole 500 mg/ Premix 100 mls @ 100 mls/hr IV Q8H [facility] Iopamidol (Isovue Multipack-370 (76%)) 61 ml IVPUSH ONETIME ONE Stop: 03/07/20 11:40 Last Admin: 03/07/20 11:39 Dose: 61 ml - Exam General: Alert, Oriented GI/Abdominal Exam: Soft, No Distention Sepsis Event Note - Evaluation Sepsis Screening Result: No Definite Risk - Focused Exam Vital Signs: Vital Signs Temp Pulse Resp BP Pulse Ox 03/08/20 08:35 99.7 F 70 15 119/58 L 96 03/08/20 04:00 98.2 F 72 18 141/60 H 94 L 03/08/20 00:00 97.8 F 70 16 113/77 97 Date Exam was Performed: 03/08/20 Time Exam was Performed: 11:06 - Problem List Review Problem List Initiated/Reviewed/Updated: Yes - My Orders Last 24 Hours: Active Orders 24 hr Category Date Time Status Admission Status [Patient Status] [ADT] Stat ADT 03/07/20 12:31 Active Ambulate [RC] ASDIRECTED Care 03/07/20 14:00 Active Ambulate [RC] Q12H Care 03/07/20 14:02 Active Intake and Output [RC] ASDIRECTED Care 03/08/20 07:19 Active Notify Provider Consults [RC] ASDIRECTED Care 03/07/20 14:06 Active Oxygen Therapy [RC] PRN Care 03/07/20 14:00 Active Pulse Oximetry [RC] PRN Care 03/07/20 14:01 Active RT Aerosol Therapy [RC] ASDIRECTED Care 03/07/20 14:05 Active Telemetry Monitoring [Cardiac Monitoring] [RC] Q8H Care 03/07/20 13:44 Active VTE/DVT Education [RC] Q12H Care 03/07/20 14:00 Active Vital Signs [RC] Q4H Care 03/07/20 14:00 Active Consult to Physician [CONS] Routine Cons 03/07/20 14:00 Active Clear Liquid Diet [DIET] Diet 03/08/20 Breakfast Active CULTURE BLOOD [BC] Stat Lab 03/07/20 14:23 Received CULTURE BLOOD [BC] Stat Lab 03/07/20 14:32 Results Acetaminophen [Tylenol Extra Strength] Med 03/07/20 16:40 Active 500 mg PO Q6H PRN Albuterol/Ipratropium [DuoNeb 3.0-0.5 MG/3 ML] Med 03/07/20 14:00 Active 3 ml NEB Q4HRRT PRN Ciprofloxacin in D5W [Cipro in D5W 400 MG/200 ML] 400 Med 03/07/20 12:30 Active mg Premix Bag 1 bag IV Q12H Lactated Ringers [Ringers, Lactated] 1,000 ml Med 03/07/20 14:00 Active IV ASDIRECTED Morphine Med 03/07/20 16:38 Active 2 mg IVPUSH Q4H PRN Ondansetron [Zofran] Med 03/07/20 14:00 Active 4 mg IVPUSH Q4H PRN Pantoprazole [ProTONIX IV] 40 mg Med 03/07/20 21:00 Active Sodium Chloride 0.9% [Normal Saline] 10 ml IV BID metroNIDAZOLE/Normal Saline [Flagyl 500 MG in NS 100 ML Med 03/07/20 21:00 Active ] 500 mg Premix Bag 1 bag IV Q8H Blood Culture x2 Reflex Set [OM.PC] Stat Oth 03/07/20 14:09 Ordered Sequential Compression Device [OM.PC] Per Unit Routine Oth 03/07/20 14:02 Ordered Resuscitation Status Routine Resus Stat 03/07/20 14:00 Ordered Medication Orders Acetaminophen (Tylenol Extra Strength) 500 mg PO Q6H PRN PRN Reason: Pain (mild 1-3) Last Admin: 03/07/20 17:49 Dose: 500 mg Albuterol/Ipratropium (Duoneb 3.0-0.5 Mg/3 Ml) 3 ml NEB Q4HRRT PRN PRN Reason: Shortness Of Breath/wheezing Ciprofloxacin/Dextrose 400 mg/ (Premix) 200 mls @ 200 mls/hr IV Q12H [facility] Last Admin: 03/07/20 23:38 Dose: 200 mls/hr Infusion: 03/07/20 13:51 Dose: 200 mls/hr Admin: 03/07/20 12:51 Dose: 200 mls/hr Lactated Ringer's (Ringers, Lactated) 1,000 mls @ 125 mls/hr IV ASDIRECTED [facility] Last Admin: 03/08/20 02:18 Dose: 125 mls/hr Infusion: 03/07/20 22:46 Dose: 125 mls/hr Admin: 03/07/20 14:46 Dose: 125 mls/hr Pantoprazole Sodium 40 mg/ (Sodium Chloride) 10 mls @ 300 mls/hr IV BID [facility] Last Admin: 03/08/20 08:04 Dose: 300 mls/hr Infusion: 03/07/20 20:47 Dose: 300 mls/hr Admin: 03/07/20 20:45 Dose: 300 mls/hr Metronidazole 500 mg/ Premix 100 mls @ 100 mls/hr IV Q8H [facility] Last Admin: 03/08/20 04:51 Dose: 100 mls/hr Infusion: 03/07/20 21:46 Dose: 100 mls/hr Admin: 03/07/20 20:46 Dose: 100 mls/hr Morphine Sulfate (Morphine) 2 mg IVPUSH Q4H PRN PRN Reason: Pain Ondansetron HCl (Zofran) 4 mg IVPUSH Q4H PRN PRN Reason: Nausea/Vomiting Sodium Chloride (Saline Flush) 10 ml FLUSH ASDIRECTED PRN PRN Reason: Keep Vein Open Last Admin: 03/07/20 10:05 Dose: 10 ml Sodium Chloride (Saline Flush) 2.5 ml FLUSH ASDIRECTED PRN PRN Reason: Keep Vein Open Last Admin: 03/07/20 10:05 Dose: 2.5 ml - Assessment Assessment (Free Text/Narrative):: resolving well to abx; agree w po diet; maybe home tomorrow if pain continue to improve; it is alright if pt wants home today, she is begging that she cannot sleep in the hosp, has to sleep at home. I think send her home today is fine, if she tolerate some oral diet; this is a repeat rectal bleed, and abnormal ct w colon wall thickening, concerning for malignancy, and she looked cachetic, she would benefit from a colonoscopy in a month or two, only if she refuse; fu w me 1 - 2 wk; thanks for the consult and care of this pleasant patient - Plan Plan (Free Text/Narrative):: resolving well to abx; agree w po diet; maybe home tomorrow if pain continue to improve; it is alright if pt wants home today, she is begging that she cannot sleep in the hosp, has to sleep at home. I think send her home today is fine, if she tolerate some oral diet; this is a repeat rectal bleed, and abnormal ct w colon wall thickening, concerning for malignancy, and she looked cachetic, she would benefit from a colonoscopy in a month or two, only if she refuse; fu w me 1 - 2 wk; thanks for the consult and care of this pleasant patient
[2020-03-08] MEDS: Ciprofloxacin in D5W 400 MG in Premix Bag 1 BAG IV SCH ×2 (11:55)
[2020-03-09] MEDS: Ciprofloxacin in D5W 400 MG in Premix Bag 1 BAG IV SCH ×4 (01:30→12:35)
[2020-03-09] MEDS: Lactated Ringers 1,000 ML IV SCH (03:37)
[2020-03-09] MEDS: metroNIDAZOLE/Normal Saline 500 MG in Premix Bag 1 BAG IV SCH (05:07)
[2020-03-09 05:59] LABS: CARBON DIOXIDE,CO2 26.6 mmol/L (21.0-32.0); POTASSIUM,K 3.7 mmol/L (3.5-5.1)
[2020-03-09] MEDS: Acetaminophen 500 MG Tab PO PRN (06:48)
[2020-03-09] MEDS: Pantoprazole 40 MG in Sodium Chloride 0.9% 10 ML IV SCH (09:05)
--- NOTE | 2020-03-09 10:42 | PCM.DCSUM1 ---
<Lazara Polk - Last Filed: 03/09/20 10:42> Discharge Summary - Hospital Course HPI Initial Comments: Admission Date: 03/07/20 Discharge Date: 03/08/20 Admission Diagnosis: 1. Colitis with rectal bleeding 2. TANO Discharge Diagnosis: 1. Colitis with rectal bleeding- improved 2. TANO-resolved Procedures: None Consults: None Hospital Course: The patient is a 85 year old female with no significant past medical history who presented to the ER with rectal bleeding and abdominal pain. In the ER workup revealed leukocytosis of 18 and TANO but no anemia. CT ab/pelvis showed thickening of sigmoid and descending colon consistent with colitis. Patient was admitted to the medical floor. She was started on Cipro and Flagyl with IVF and pain control. She was kept NPO until her pain and white count improved and then her diet was advanced as tolerated. Dr. Skinner, general surgery was consulted and recommend outpatient colonoscopy 4 weeks after discharge. Over the course of the stay, her white count, TANO resolved, and she had no significant drop in her hemoglobin. By day of discharge symptoms had improved, she was tolerating an oral diet and wanted to go home. Disposition: Home Discharge Condition: vitals stable, tolerating oral diet, ambulating without difficulty, symptom improvement Discharge Instructions: advance diet as tolerated, activity as tolerated, take medications as prescribed. Symptoms to report to physician include fever/chills , chest pain, shortness of breath, abdominal pain, erythema, drainage/discharge , or not improving as expected. Discharge Medications: Melatonin 3 mg PO BEDTIME Zolpidem [Ambien] 1 dose PO BEDTIME PRN Ciprofloxacin HCl [Cipro] 500 mg PO BID metroNIDAZOLE [Flagyl] 500 mg PO Q8H Follow-up: 1. PCP 2. General surgery- Dr. Skinner - Discharge Data Discharge Date: 03/09/20 Discharge Disposition: Home, Self-Care 01 Condition: Fair - Referral to Home Health Primary Care Physician: Xin Chaudhary NP - Patient Summary/Data Consults: Consultations 03/07/20 14:00 Consult to Physician [CONS] Routine - Patient Instructions Diet: Clear Liquid Diet, Full Liquid Diet, GI Soft/Low Residue/Low Fiber Diet, Other: Advance diet as tolerated Activity: As Tolerated Showering/Bathing: May Shower Notify Provider of: Fever, Increased Pain, Swelling and Redness, Drainage, Nausea and/or Vomiting Other/Special Instructions: Additional symptoms include chest pain, shortness of breath, abdominal pain, or blood in the stool. , general surgery, wants to see you in 1 month to discuss colonoscopy. - Discharge Plan *PRESCRIPTION DRUG MONITORING PROGRAM REVIEWED*: No *COPY OF PRESCRIPTION DRUG MONITORING REPORT IN PATIENT BRIGHT: No Prescriptions/Med Rec: Ciprofloxacin HCl [Cipro] 500 mg PO BID 8 Days #16 tablet metroNIDAZOLE [Flagyl] 500 mg PO Q8H 8 Days #24 tab Home Medications: Home Meds Melatonin 3 mg PO BEDTIME 08/19/18 [History] Zolpidem [Ambien] 1 dose PO BEDTIME PRN 03/07/20 [History] Ciprofloxacin HCl [Cipro] 500 mg PO BID 8 Days #16 tablet 03/09/20 [Rx] metroNIDAZOLE [Flagyl] 500 mg PO Q8H 8 Days #24 tab 03/09/20 [Rx] Patient Handouts: Soft-Food Eating Plan, Colitis, Ciprofloxacin tablets, Metronidazole tablets or capsules Referrals: Xin Chaudhary NP [Primary Care Provider] - Cole Skinner MD [Physician] - - Discharge Summary/Plan Comment DC Time >30 min.: No - Patient Data Vitals - Most Recent: Last Vital Signs Temp 99.3 F 03/09/20 08:00 Pulse 67 03/09/20 08:00 Resp 15 03/09/20 08:00 BP 115/57 L 03/09/20 08:00 Pulse Ox 99 03/09/20 08:00 Weight - Most Recent: 49.895 kg I&O - Last 24 hours: Intake & Output 03/08/20 03/09/20 03/09/20 22:59 06:59 14:59 Intake Total 1430 150 Output Total 900 550 Balance 530 -400 Lab Results - Last 24 hrs: Laboratory Results - last 24 hr 03/09/20 03/09/20 Range/Units 05:30 05:30 WBC 8.78 (4.0-11.0) K/uL RBC 4.10 L (4.30-5.90) M/uL Hgb 12.3 (12.0-16.0) g/dL Hct 38.7 (36.0-46.0) % MCV 94.4 (80.0-98.0) fL MCH 30.0 (27.0-32.0) pg MCHC 31.8 (31.0-37.0) g/dL RDW Std Deviation 44.1 (28.0-62.0) fl RDW Coeff of Judson 13 (11.0-15.0) % Plt Count 277 (150-400) K/uL MPV 10.60 (7.40-12.00) fL Neut % (Auto) 79.0 (48.0-80.0) % Lymph % (Auto) 12.8 L (16.0-40.0) % [place] % (Auto) 6.4 (0.0-15.0) % Eos % (Auto) 1.6 (0.0-7.0) % Baso % (Auto) 0.2 (0.0-1.5) % Neut # (Auto) 6.9 H (1.4-5.7) K/uL Lymph # (Auto) 1.1 (0.6-2.4) K/uL [place] # (Auto) 0.6 (0.0-0.8) K/uL Eos # (Auto) 0.1 (0.0-0.7) K/uL Baso # (Auto) 0.0 (0.0-0.1) K/uL Nucleated RBC % 0.0 /100WBC Nucleated RBCs # 0 K/uL Sodium 140 (136-145) mmol/L Potassium 3.7 (3.5-5.1) mmol/L Chloride 106 (98-107) mmol/L Carbon Dioxide 26.6 (21.0-32.0) mmol/L BUN 10 (7.0-18.0) mg/dL Creatinine 0.9 (0.6-1.0) mg/dL Est Cr Clr Drug Dosing 34.69 mL/min Estimated GFR (MDRD) 59.2 ml/min Glucose 114 H (74-106) mg/dL Calcium 7.8 L (8.5-10.1) mg/dL TAISHA Results - Last 24 hrs: Microbiology 03/07/20 14:32 Aerobic Blood Culture - Preliminary Blood - Venous - Lab Draw NO GROWTH AFTER 1 DAY Anaerobic Blood Culture - Final 03/07/20 14:23 Aerobic Blood Culture - Preliminary Blood - Venous NO GROWTH AFTER 1 DAY Anaerobic Blood Culture - Preliminary NO GROWTH AFTER 1 DAY Med Orders - Current: Current Medications Acetaminophen (Tylenol Extra Strength) 500 mg PO Q6H PRN PRN Reason: Pain (mild 1-3) Last Admin: 03/09/20 06:48 Dose: 500 mg Albuterol/Ipratropium (Duoneb 3.0-0.5 Mg/3 Ml) 3 ml NEB Q4HRRT PRN PRN Reason: Shortness Of Breath/wheezing Ciprofloxacin/Dextrose 400 mg/ (Premix) 200 mls @ 200 mls/hr IV Q12H [facility] Last Admin: 03/09/20 01:30 Dose: 200 mls/hr Lactated Ringer's (Ringers, Lactated) 1,000 mls @ 125 mls/hr IV ASDIRECTED [facility] Last Admin: 03/09/20 03:37 Dose: 125 mls/hr Pantoprazole Sodium 40 mg/ (Sodium Chloride) 10 mls @ 300 mls/hr IV BID [facility] Last Admin: 03/09/20 09:05 Dose: 300 mls/hr Metronidazole 500 mg/ Premix 100 mls @ 100 mls/hr IV Q8H [facility] Last Admin: 03/09/20 05:07 Dose: 100 mls/hr Morphine Sulfate (Morphine) 2 mg IVPUSH Q4H PRN PRN Reason: Pain Ondansetron HCl (Zofran) 4 mg IVPUSH Q4H PRN PRN Reason: Nausea/Vomiting Sodium Chloride (Saline Flush) 10 ml FLUSH ASDIRECTED PRN PRN Reason: Keep Vein Open Last Admin: 03/07/20 10:05 Dose: 10 ml Sodium Chloride (Saline Flush) 2.5 ml FLUSH ASDIRECTED PRN PRN Reason: Keep Vein Open Last Admin: 03/07/20 10:05 Dose: 2.5 ml Discontinued Medications Sodium Chloride (Normal Saline) 1,000 mls @ 999 mls/hr IV BOLUS ONE Stop: 03/07/20 10:42 Last Admin: 03/07/20 10:05 Dose: 999 mls/hr Pantoprazole Sodium 40 mg/ (Sodium Chloride) 20 mls @ 420 mls/hr IVPUSH ONETIME ONE Stop: 03/07/20 09:46 Last Admin: 03/07/20 10:05 Dose: 420 mls/hr Metronidazole 500 mg/ Premix 100 mls @ 100 mls/hr IV ONETIME ONE Stop: 03/07/20 13:28 Last Admin: 03/07/20 13:52 Dose: 100 mls/hr Metronidazole 500 mg/ Premix 100 mls @ 100 mls/hr IV Q8H RHETT Iopamidol (Isovue Multipack-370 (76%)) 61 ml IVPUSH ONETIME ONE Stop: 03/07/20 11:40 Last Admin: 03/07/20 11:39 Dose: 61 ml <Delroy Durham - Last Filed: 03/12/20 11:59> Discharge Summary - Referral to Home Health Primary Care Physician: Xin Chaudhary NP - Patient Summary/Data Consults: Consultations 03/07/20 14:00 Consult to Physician [CONS] Routine - Patient Data Vitals - Most Recent: Last Vital Signs Temp 37.4 C 03/09/20 08:00 Pulse 67 03/09/20 08:00 Resp 15 03/09/20 08:00 BP 115/57 L 03/09/20 08:00 Pulse Ox 99 03/09/20 08:00 TAISHA Results - Last 24 hrs: Microbiology 03/07/20 14:32 Aerobic Blood Culture - Preliminary Blood - Venous - Lab Draw NO GROWTH AFTER 4 DAYS Anaerobic Blood Culture - Final 03/07/20 14:23 Aerobic Blood Culture - Preliminary Blood - Venous NO GROWTH AFTER 4 DAYS Anaerobic Blood Culture - Preliminary NO GROWTH AFTER 4 DAYS Med Orders - Current: Current Medications Discontinued Medications Acetaminophen (Tylenol Extra Strength) 500 mg PO Q6H PRN PRN Reason: Pain (mild 1-3) Last Admin: 03/09/20 06:48 Dose: 500 mg Albuterol/Ipratropium (Duoneb 3.0-0.5 Mg/3 Ml) 3 ml NEB Q4HRRT PRN PRN Reason: Shortness Of Breath/wheezing Sodium Chloride (Normal Saline) 1,000 mls @ 999 mls/hr IV BOLUS ONE Stop: 03/07/20 10:42 Last Admin: 03/07/20 10:05 Dose: 999 mls/hr Pantoprazole Sodium 40 mg/ (Sodium Chloride) 20 mls @ 420 mls/hr IVPUSH ONETIME ONE Stop: 03/07/20 09:46 Last Admin: 03/07/20 10:05 Dose: 420 mls/hr Ciprofloxacin/Dextrose 400 mg/ (Premix) 200 mls @ 200 mls/hr IV Q12H [facility] Last Admin: 03/09/20 12:35 Dose: Not Given Metronidazole 500 mg/ Premix 100 mls @ 100 mls/hr IV ONETIME ONE Stop: 03/07/20 13:28 Last Admin: 03/07/20 13:52 Dose: 100 mls/hr Lactated Ringer's (Ringers, Lactated) 1,000 mls @ 125 mls/hr IV ASDIRECTED RHETT Last Admin: 03/09/20 03:37 Dose: 125 mls/hr Pantoprazole Sodium 40 mg/ (Sodium Chloride) 10 mls @ 300 mls/hr IV BID [facility] Last Admin: 03/09/20 09:05 Dose: 300 mls/hr Metronidazole 500 mg/ Premix 100 mls @ 100 mls/hr IV Q8H RHETT Metronidazole 500 mg/ Premix 100 mls @ 100 mls/hr IV Q8H [facility] Last Admin: 03/09/20 05:07 Dose: 100 mls/hr Iopamidol (Isovue Multipack-370 (76%)) 61 ml IVPUSH ONETIME ONE Stop: 03/07/20 11:40 Last Admin: 03/07/20 11:39 Dose: 61 ml Morphine Sulfate (Morphine) 2 mg IVPUSH Q4H PRN PRN Reason: Pain Ondansetron HCl (Zofran) 4 mg IVPUSH Q4H PRN PRN Reason: Nausea/Vomiting Sodium Chloride (Saline Flush) 10 ml FLUSH ASDIRECTED PRN PRN Reason: Keep Vein Open Last Admin: 03/07/20 10:05 Dose: 10 ml Sodium Chloride (Saline Flush) 2.5 ml FLUSH ASDIRECTED PRN PRN Reason: Keep Vein Open Last Admin: 03/07/20 10:05 Dose: 2.5 ml - Free Text/Narrative Note: I have seen and examined the patient. I have discussed findings and treatment plan with resident. I agree with the assessment and plan as outlined in the following note.
== END 2020-03-09 12:00 | disposition home or self-care (01) ==
LOC: MW.ED 09:36 → MW.MS 12:31
PROVIDERS: ADMIT Student in an Organized Health Care Education/Training Program; ATTEND Student in an Organized Health Care Education/Training Program
DX: K52.9 Noninfective gastroenteritis and colitis, unspecified (principal); K92.2 Gastrointestinal hemorrhage, unspecified; N17.9 Acute kidney failure, unspecified; K63.89 Other specified diseases of intestine; Z88.0 Allergy status to penicillin; Z79.82 Long term (current) use of aspirin
CPT/HCPCS: 36415; 74177; 80048; 80053; 81001; 83690; 83735; 84100; 85018; 85025; 87040; 96361; 96365; 96366; 96367; 96375; 96376; 99285; A9270; C9113; G0378; J0744; J3490; J7030; J7050; J7120; Q9967; 99284

== ENCOUNTER 2020-07-24 22:33 | Inpatient (IN) | payer MEDICARE, BC ==
--- NOTE | 2020-07-24 22:57 | EDM.PDOC ---
ED HPI GENERAL MEDICAL PROBLEM - General Chief Complaint: Genitourinary Problem Stated Complaint: cath issues Time Seen by Provider: 07/24/20 22:45 - History of Present Illness INITIAL COMMENTS - FREE TEXT/NARRATIVE: History of present illness: [] Patient had a little overflow incontinence the last day or 2 and went to her doctor today and they put in a catheter and got 2 L of urine out. She was told there was no evidence of infection. There were little red or pink streaks but when she got home and after she change close and what not she began to see some blood and clots. Now her urine is red. She does not have any pain or discomfort. There is no back pain. There is no nausea. There is no fever and chills. She is not dizzy or orthostatic. Is on a blood thinner. Review of systems: As per history of present illness and below otherwise all systems reviewed and negative. Past medical history: As per history of present illness and as reviewed below otherwise noncontributory. Surgical history: As per history of present illness and as reviewed below otherwise noncontributory. Social history: No reported history of drug or alcohol abuse. Family history: As per history of present illness and as reviewed below otherwise noncontributory. Physical exam: Constitutional - well developed, well-nourished and in no acute distress HEENT - normocephalic, no evidence of trauma - external nose and mouth normal - no mass in neck and no JVD - mucosae moist EYES - full EOM, PERRL, no icterus - no evidence of inflammation, injection, or drainage Respiratory - no respiratory distress, equal bilateral expansion, lungs clear to auscultation and no abnormal lung sounds Cardiovascular - Regular Rhythm with S1 and S2 appreciated and no murmur, gallop or rub. GI - abdomen soft without distension or organomegaly - normal bowel sounds - no guard or rebound -there is red-tinged urine with tiny clots in the catheter on the leg bag. Musculoskeletal no gross deformity of long bones or joints - no tenderness, swelling or edema Neurologic - Alert and oriented times four - CN II-XII grossly intact - motor sensory and coordination symmetrically normal Psychiatric - appropriate mood and affect with normal thought content Hematologic - No petechiae or purpura - mucosa appropriate color and sclera not pale - normal nail bed color and refill Integument - no rash or evidence of trauma - normal turgor Diagnostics: [] Therapeutics: [] Impression: [] Plan: [] Definitive disposition and diagnosis as appropriate pending reevaluation and review of above. 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 Musculoskeletal History: Reports: Arthritis Neurological History: Reports: None Psychiatric History: Reports: None Endocrine/Metabolic History: Reports: None Hematologic History: Reports: Other (See Below) Other Hematologic History: low potassium in past Immunologic History: Reports: None Oncologic (Cancer) History: Reports: None Dermatologic History: Reports: None - Infectious Disease History Infectious Disease History: Reports: None - Past Surgical History Head Surgeries/Procedures: Reports: None HEENT Surgical History: Reports: None Cardiovascular Surgical History: Reports: None Respiratory Surgical History: Reports: None GI Surgical History: Reports: None Female Surgical History: Reports: None Endocrine Surgical History: Reports: None Neurological Surgical History: Reports: None Musculoskeletal Surgical History: Reports: None Oncologic Surgical History: Reports: None Dermatological Surgical History: Reports: None Social & Family History - Family History Family Medical History: Noncontributory - Caffeine Use Caffeine Use: Reports: None ED ROS GENERAL - Review of Systems Review Of Systems: Comprehensive ROS is negative, except as noted in HPI. ED EXAM, GENERAL - Physical Exam Exam: See Below Free Text/Narrative:: My history and physical is in the HPI Course - Vital Signs Text/Narrative:: Manual irrigation was followed by 500 mL to fill the bladder irrigated with gravity fill and return of bright red blood. This was repeated with same effect. Discussed with Dr. Camacho and he said to admit the patient for continuous bladder irrigation and his 6 AM hemoglobin. Discussed with Dr. Durham for hospitalist service and he agreed to put the patient on his service. Last Recorded V/S: Last Vital Signs Temp 96.7 F L 07/24/20 22:55 Pulse 80 07/24/20 22:55 Resp 18 07/24/20 22:55 BP 146/67 H 07/24/20 22:55 Pulse Ox 96 07/24/20 22:55 - Orders/Labs/Meds Orders: Active Orders 24 hr Category Date Time Status Admission Status [Patient Status] [ADT] Stat ADT 07/24/20 23:51 Ordered Communication Order [RC] STAT Care 07/24/20 22:54 Active Notify Provider Consults [RC] ASDIRECTED Care 07/24/20 23:54 Ordered Consult to Physician [CONS] Stat Cons 07/24/20 23:53 Ordered Labs: Laboratory Tests 07/24/20 Range/Units 23:01 WBC 10.97 (4.0-11.0) K/uL RBC 4.62 (4.30-5.90) M/uL Hgb 14.0 (12.0-16.0) g/dL Hct 43.3 (36.0-46.0) % MCV 93.7 (80.0-98.0) fL MCH 30.3 (27.0-32.0) pg MCHC 32.3 (31.0-37.0) g/dL RDW Std Deviation 42.6 (28.0-62.0) fl RDW Coeff of Judson 13 (11.0-15.0) % Plt Count 365 (150-400) K/uL MPV 10.30 (7.40-12.00) fL Neut % (Auto) 70.2 (48.0-80.0) % Lymph % (Auto) 22.0 (16.0-40.0) % [place] % (Auto) 7.0 (0.0-15.0) % Eos % (Auto) 0.6 (0.0-7.0) % Baso % (Auto) 0.2 (0.0-1.5) % Neut # (Auto) 7.7 H (1.4-5.7) K/uL Lymph # (Auto) 2.4 (0.6-2.4) K/uL [place] # (Auto) 0.8 (0.0-0.8) K/uL Eos # (Auto) 0.1 (0.0-0.7) K/uL Baso # (Auto) 0.0 (0.0-0.1) K/uL Nucleated RBC % 0.0 /100WBC Nucleated RBCs # 0 K/uL Meds: Medications Discontinued Medications Generic Name Dose Route Start Last Admin Trade Name Xavi PRN Reason Stop Dose Admin Lidocaine HCl 5 ml 07/24/20 23:49 Xylocaine 2% Jelly MUCMEM 07/24/20 23:50 ONETIME ONE Lidocaine HCl 5 ml 07/24/20 23:48 Xylocaine 4% Top Soln MUCMEM 07/24/20 23:49 ONETIME ONE Departure - Departure Time of Disposition: 23:55 Disposition: Admitted As Inpatient 64 Condition: Good Clinical Impression: Hematuria syndrome - Discharge Information Instructions: Indwelling Urinary Catheter Care, Adult, Hematuria, Adult Referrals: Xin Chaudhary ADAPTIVE PHYSICAL EDUCATION TEACHER [Primary Care Provider] - Forms: ED Department Discharge Additional Instructions: [facility] - Urology [address] [place] [id number] The following information is given to patients seen in the emergency department who are being discharged to home. This information is to outline your options for follow-up care. We provide all patients seen in our emergency department with a follow-up referral. The need for follow-up, as well as the timing and circumstances, are variable depending upon the specifics of your emergency department visit. If you don't have a primary care physician on staff, we will provide you with a referral. We always advise you to contact your personal physician following an emergency department visit to inform them of the circumstance of the visit and for follow-up with them and/or the need for any referrals to a consulting specialist. The emergency department will also refer you to a specialist when appropriate. This referral assures that you have the opportunity for follow-up care with a specialist. All of these measure are taken in an effort to provide you with optimal care, which includes your follow-up. Under all circumstances we always encourage you to contact your private physician who remains a resource for coordinating your care. When calling for follow-up care, please make the office aware that this follow-up is from your recent emergency room visit. If for any reason you are refused follow-up, please contact the [facility] Emergency Department at and asked to speak to the emergency department charge nurse. Sepsis Event Note (ED) - Focused Exam Vital Signs: Vital Signs Temp Pulse Resp BP Pulse Ox 07/24/20 22:55 96.7 F L 80 18 146/67 H 96 - My Orders Last 24 Hours: My Active Orders 07/24/20 22:54 Communication Order [RC] STAT 07/24/20 23:51 Admission Status [Patient Status] [ADT] Stat 07/24/20 23:53 Consult to Physician [CONS] Stat 07/24/20 23:54 Notify Provider Consults [RC] ASDIRECTED - Assessment/Plan Last 24 Hours: My Active Orders 07/24/20 22:54 Communication Order [RC] STAT 07/24/20 23:51 Admission Status [Patient Status] [ADT] Stat 07/24/20 23:53 Consult to Physician [CONS] Stat 07/24/20 23:54 Notify Provider Consults [RC] ASDIRECTED
[2020-07-24] MEDS ORDERED: Lidocaine 4% Top Soln 50 ML Bottle MUCMEM ONE (23:48)
[2020-07-24] MEDS ORDERED: Lidocaine 2% Jelly 30 ML Tube MUCMEM ONE (23:49)
[2020-07-25] MEDS ORDERED: Sodium Chloride 0.9% 10 ML Syringe FLUSH PRN (00:26)
[2020-07-25] MEDS ORDERED: Sodium Chloride 0.9% 2.5 ML Syringe FLUSH PRN ×2 (00:26→08:09)
[2020-07-25] MEDS ORDERED: Sodium Chloride 0.9% 1,000 ML IV SCH (00:30)
[2020-07-25 00:43] LABS: BLOOD UREA NITROGEN,BUN 23 mg/dL (7.0-18.0); CARBON DIOXIDE,CO2 23.7 mmol/L (21.0-32.0); CHLORIDE,CL 103 mmol/L (98-107); GLUCOSE RANDOM 145 mg/dL (74-106); POTASSIUM,K 4.2 mmol/L (3.5-5.1); SODIUM,NA 138 mmol/L (136-145)
[2020-07-25] MEDS ORDERED: Melatonin 3 MG Tab PO STA (02:02)
[2020-07-25 06:04] LABS: CARBON DIOXIDE,CO2 28.5 mmol/L (21.0-32.0); POTASSIUM,K 4.5 mmol/L (3.5-5.1)
[2020-07-25] MEDS ORDERED: Ondansetron 4 MG/2 ML SDV IVPUSH PRN (08:09)
[2020-07-25] MEDS: Acetaminophen 325 MG Tab PO PRN ×2 (08:39→22:57)
--- NOTE | 2020-07-25 10:44 | PCM.HP.2 ---
H&P History of Present Illness - General Date of Service: 07/25/20 Admit Problem/Dx: Admission Diagnosis/Problem Admission Diagnosis/Problem Hematuria Source of Information: Patient History Limitations: Reports: No Limitations - History of Present Illness Initial Comments - Free Text/Narative: This 85-year-old female with PMH of insomnia and some bladder emptying issues presented to the ER with concerns of hematuria. She reports that she went to her PCP yesterday with concerns of possible urinary tract infection due to increasing frequency. She reports that at home she was going to the bathroom every 20 minutes and only urinating very small amounts. She felt that her abdomen was very distended as well. In the PCP office a Gonzalez catheter was placed and approximately 2 L of urine was removed. When she was leaving she did note that some blood and blood clots were noted in the catheter. By the time she arrived home the catheter was filled completely with blood. She monitored it for the next couple hours and it did not improve. She arrived to the ER for evaluation. She denies any fevers chills chest pain shortness of breath or abdominal pain. No focal neurological deficits. In the ER Dr. Camacho was consulted recommended continuous Gonzalez irrigations. She denies any use of Benadryl or Tylenol PM recently medication she takes at home include Ambien and melatonin. She denies any history of smoking no alcohol use or recreational drug use. She was recently admitted for diverticulitis in February 2020 and has done well since then. In the ER no leukocytosis was noted hemoglobin was stable at 14.0. Mild TANO noted with creatinine 1.2 and BUN 22. Continues irrigations continued. She will be admitted inpatient for hematuria with consultation from urology. - Related Data Allergies/Adverse Reactions: Allergies Allergy/AdvReac Type Severity Reaction Status Date / Time Penicillins Allergy Other Verified 07/25/20 03:19 Home Medications: Home Meds Melatonin 3 mg PO BEDTIME 08/19/18 [History] Zolpidem [Ambien] 0.5 dose PO BEDTIME PRN 03/07/20 [History] Past Medical History - Past Health History Medical/Surgical History: Denies Medical/Surgical History HEENT History: Reports: Impaired Vision Cardiovascular History: Reports: None Respiratory History: Reports: None Gastrointestinal History: Reports: Diverticulosis, Other (See Below) Other Gastrointestinal History: colitis Genitourinary History: Reports: None [employer] History: Reports: None Musculoskeletal History: Reports: Arthritis Neurological History: Reports: None Psychiatric History: Reports: None Endocrine/Metabolic History: Reports: None Hematologic History: Reports: Other (See Below) Other Hematologic History: low potassium in past Immunologic History: Reports: None Oncologic (Cancer) History: Reports: None Dermatologic History: Reports: None - Infectious Disease History Infectious Disease History: Reports: None Other Infectious Disease History: is unsure of hx - Past Surgical History Head Surgeries/Procedures: Reports: None HEENT Surgical History: Reports: None Cardiovascular Surgical History: Reports: None Respiratory Surgical History: Reports: None GI Surgical History: Reports: None Female Surgical History: Reports: None Endocrine Surgical History: Reports: None Neurological Surgical History: Reports: None Musculoskeletal Surgical History: Reports: None Oncologic Surgical History: Reports: None Dermatological Surgical History: Reports: None Social & Family History - Family History Family Medical History: Noncontributory - Tobacco Use Smoking Status *Q: Never Smoker - Caffeine Use Caffeine Use: Reports: None - Recreational Drug Use Recreational Drug Use: No H&P Review of Systems - Review of Systems: Review Of Systems: See Below General: Reports: No Symptoms. Denies: Fever, Chills, Malaise, Weakness HEENT: Reports: No Symptoms. Denies: Ear Pain, Vertigo Pulmonary: Reports: No Symptoms. Denies: Shortness of Breath, Pleuritic Chest Pain Cardiovascular: Reports: No Symptoms. Denies: Chest Pain Gastrointestinal: Reports: Distension. Denies: Black Stool, Bloody Stool Genitourinary: Reports: Frequency, Hematuria Musculoskeletal: Reports: No Symptoms Skin: Reports: No Symptoms Psychiatric: Reports: No Symptoms Neurological: Reports: No Symptoms Hematologic/Lymphatic: Reports: No Symptoms Immunologic: Reports: No Symptoms Exam - Exam Exam: See Below - Vital Signs Vital Signs: Last Vital Signs Temp 97.9 F 07/25/20 08:00 Pulse 66 07/25/20 08:00 Resp 16 07/25/20 08:00 BP 110/52 L 07/25/20 08:00 Pulse Ox 96 07/25/20 08:09 Weight: 45.45 kg - Exam Quality Assessment: DVT Prophylaxis (SCDs). No: Supplemental Oxygen General: Alert, Oriented, Cooperative Lungs: Clear to Auscultation, Normal Respiratory Effort Cardiovascular: Regular Rate, Regular Rhythm GI/Abdominal Exam: Normal Bowel Sounds, Soft, Non-Tender (Female) Exam: Other (urine is blood tinged in catheter tubing, continuous irrigations continue. ) Extremities: Normal Inspection, Normal Range of Motion, Non-Tender Neuro Extensive - Mental Status: Alert, Oriented x3 Neuro Extensive - Motor, Sensory, Reflexes: CN II-XII Intact Psychiatric: Alert, Normal Affect, Normal Mood - Patient Data Lab Results Last 24 hrs: Laboratory Results - last 24 hr 07/24/20 07/24/20 07/25/20 Range/Units 23:01 23:01 00:46 WBC 10.97 (4.0-11.0) K/uL RBC 4.62 (4.30-5.90) M/uL Hgb 14.0 (12.0-16.0) g/dL Hct 43.3 (36.0-46.0) % MCV 93.7 (80.0-98.0) fL MCH 30.3 (27.0-32.0) pg MCHC 32.3 (31.0-37.0) g/dL RDW Std Deviation 42.6 (28.0-62.0) fl RDW Coeff of Judson 13 (11.0-15.0) % Plt Count 365 (150-400) K/uL MPV 10.30 (7.40-12.00) fL Neut % (Auto) 70.2 (48.0-80.0) % Lymph % (Auto) 22.0 (16.0-40.0) % Trigg % (Auto) 7.0 (0.0-15.0) % Eos % (Auto) 0.6 (0.0-7.0) % Baso % (Auto) 0.2 (0.0-1.5) % Neut # (Auto) 7.7 H (1.4-5.7) K/uL Lymph # (Auto) 2.4 (0.6-2.4) K/uL Trigg # (Auto) 0.8 (0.0-0.8) K/uL Eos # (Auto) 0.1 (0.0-0.7) K/uL Baso # (Auto) 0.0 (0.0-0.1) K/uL Nucleated RBC % 0.0 /100WBC Nucleated RBCs # 0 K/uL Sodium 138 (136-145) mmol/L Potassium 4.2 (3.5-5.1) mmol/L Chloride 103 (98-107) mmol/L Carbon Dioxide 23.7 (21.0-32.0) mmol/L BUN 23 H (7.0-18.0) mg/dL Creatinine 1.2 H (0.6-1.0) mg/dL Est Cr Clr Drug Dosing TNP Estimated GFR (MDRD) 42.5 ml/min Glucose 145 H (74-106) mg/dL Calcium 9.2 (8.5-10.1) mg/dL Total Bilirubin 0.4 (0.2-1.0) mg/dL AST 16 (15-37) IU/L ALT 21 (14-63) IU/L Alkaline Phosphatase 77 (46-116) U/L Total Protein 6.8 (6.4-8.2) g/dL Albumin 3.7 (3.4-5.0) g/dL Globulin 3.1 (2.6-4.0) g/dL Albumin/Globulin Ratio 1.2 (0.9-1.6) SARS-CoV-2 RNA (ESTRADA) NEGATIVE (NEGATIVE) 07/25/20 07/25/20 Range/Units 05:05 05:05 WBC 7.37 (4.0-11.0) K/uL RBC 4.35 (4.30-5.90) M/uL Hgb 13.0 (12.0-16.0) g/dL Hct 41.1 (36.0-46.0) % MCV 94.5 (80.0-98.0) fL MCH 29.9 (27.0-32.0) pg MCHC 31.6 (31.0-37.0) g/dL RDW Std Deviation 43.0 (28.0-62.0) fl RDW Coeff of Judson 13 (11.0-15.0) % Plt Count 317 (150-400) K/uL MPV 10.50 (7.40-12.00) fL Neut % (Auto) 66.6 (48.0-80.0) % Lymph % (Auto) 24.2 (16.0-40.0) % Trigg % (Auto) 8.3 (0.0-15.0) % Eos % (Auto) 0.8 (0.0-7.0) % Baso % (Auto) 0.1 (0.0-1.5) % Neut # (Auto) 4.9 (1.4-5.7) K/uL Lymph # (Auto) 1.8 (0.6-2.4) K/uL Trigg # (Auto) 0.6 (0.0-0.8) K/uL Eos # (Auto) 0.1 (0.0-0.7) K/uL Baso # (Auto) 0.0 (0.0-0.1) K/uL Nucleated RBC % 0.0 /100WBC Nucleated RBCs # 0 K/uL Sodium 141 (136-145) mmol/L Potassium 4.5 (3.5-5.1) mmol/L Chloride 106 (98-107) mmol/L Carbon Dioxide 28.5 (21.0-32.0) mmol/L BUN 22 H (7.0-18.0) mg/dL Creatinine 1.1 H (0.6-1.0) mg/dL Est Cr Clr Drug Dosing 25.85 Estimated GFR (MDRD) 47.0 ml/min Glucose 161 H (74-106) mg/dL Calcium 9.1 (8.5-10.1) mg/dL Total Bilirubin (0.2-1.0) mg/dL AST (15-37) IU/L ALT (14-63) IU/L Alkaline Phosphatase (46-116) U/L Total Protein (6.4-8.2) g/dL Albumin (3.4-5.0) g/dL Globulin (2.6-4.0) g/dL Albumin/Globulin Ratio (0.9-1.6) SARS-CoV-2 RNA (ESTRADA) (NEGATIVE) Result Diagrams: 07/25/20 05:05 07/25/20 05:05 Sepsis Event Note - Evaluation Sepsis Screening Result: No Definite Risk - Focused Exam Vital Signs: Vital Signs Temp Pulse Resp BP Pulse Ox Pulse Ox 07/25/20 08:09 96 07/25/20 08:00 97.9 F 66 16 110/52 L 96 07/25/20 02:15 97.3 F 72 16 137/61 100 07/24/20 22:55 96.7 F L 80 18 146/67 H 96 - Problem List (1) Hematuria syndrome SNOMED Code(s): 07078102 ICD Code: R31.9 - HEMATURIA, UNSPECIFIED Status: Acute Current Visit: Yes Problem List Initiated/Reviewed/Updated: Yes Orders Last 24hrs: Active Orders 24 hr Category Date Time Status Admission Status [Patient Status] [ADT] Stat ADT 07/24/20 23:51 Active Antiembolic Devices [RC] PER UNIT ROUTINE Care 07/25/20 08:10 Active Communication Order [RC] STAT Care 07/24/20 22:54 Active Intake and Output [RC] QSHIFT Care 07/25/20 08:10 Active Notify Provider Consults [RC] ASDIRECTED Care 07/24/20 23:54 Active Oxygen Therapy [RC] PRN Care 07/25/20 08:09 Active Up With Assistance [RC] ASDIRECTED Care 07/25/20 08:09 Active VTE/DVT Education [RC] PER UNIT ROUTINE Care 07/25/20 08:09 Active Vital Signs [RC] Q4H Care 07/25/20 08:09 Active Consult to Physician [CONS] Stat Cons 07/24/20 23:53 Active Regular Diet [DIET] Diet 07/25/20 Breakfast Active Abdomen Pelvis wo Cont [CT] Urgent Exams 07/25/20 10:00 Ordered BASIC METABOLIC PANEL,BMP [CHEM] AM Lab 07/26/20 05:11 Ordered CBC WITH AUTO DIFF [HEME] AM Lab 07/26/20 05:11 Ordered UA W/TAISHA RFLX IF INDICATED [URIN] Stat Lab 07/25/20 00:21 Ordered Acetaminophen [TylenoL] Med 07/25/20 08:09 Active 650 mg PO Q4H PRN Ondansetron [Zofran] Med 07/25/20 08:09 Active 4 mg IVPUSH Q4H PRN Sodium Chloride 0.9% [Saline Flush] Med 07/25/20 08:09 Active 2.5 ml FLUSH ASDIRECTED PRN Saline Lock Insert [OM.PC] Routine Oth 07/25/20 08:09 Ordered Sequential Compression Device [OM.PC] Per Unit Routine Oth 07/25/20 08:10 Ordered Medication Orders Acetaminophen (Tylenol) 650 mg PO Q4H PRN PRN Reason: Pain (Mild 1-3)/fever Last Admin: 07/25/20 08:39 Dose: 650 mg Documented by: TUNDE Cosigned by: JOLIE Ondansetron HCl (Zofran) 4 mg IVPUSH Q4H PRN PRN Reason: Nausea Sodium Chloride (Saline Flush) 2.5 ml FLUSH ASDIRECTED PRN PRN Reason: Keep Vein Open Assessment/Plan Comment:: This 85-year-old female admitted for hematuria status post Gonzalez catheter placement 1. Hematuria - Continue Gonzalez irrigations, manual irrigations as needed - Consult Dr. Camacho - Obtain CT of abdomen/pelvis today VTE prophylaxis: SCDs only due to acute bleeding Dispo: 2 days
--- NOTE | 2020-07-25 11:51 | CT ---
INDICATION: Hematuria. TECHNIQUE: CT abdomen and pelvis without contrast. COMPARISON: None. FINDINGS: Lower chest: Small hiatal hernia. Liver: Normal in size and attenuation. No masses. Gallbladder and bile ducts: Multiple gallbladder stones. No inflammation no biliary dilatation. Pancreas: Unremarkable. No mass or inflammation. Spleen: Normal in size. No masses. Adrenal glands: Normal in size. No nodules. Kidneys: Normal in size. No masses, stones, or hydronephrosis. GI tract: Unremarkable. Normal in caliber. No sign of mass or inflammation. Vasculature: Unremarkable. Lymph nodes: No lymphadenopathy. Abdominal wall/Omentum/Peritoneum: Unremarkable. No sign of mass or infiltration. No free air or significant free fluid. Pelvis: Gonzalez catheter present within a mostly decompressed bladder. There is a moderate amount of relatively dense fluid in the bladder surrounding the Gonzalez balloon suggesting blood products. A large 6 cm bladder diverticulum is left posterior. Smaller diverticulum is lateral right. Gallbladder wall is thickened. Bones: Unremarkable for age. IMPRESSION: 1. Gonzalez catheter present within a decompressed urinary bladder. Moderate amount of high attenuation fluid in the bladder lumen consistent with blood products. There are bladder diverticula. Wall thickening of the urinary bladder could be acute or chronic. 2. Unremarkable kidneys. 3. Cholelithiasis. Please note that all CT scans at this facility use dose modulation, iterative reconstruction, and/or weight-based dosing when appropriate to reduce radiation dose to as low as reasonably achievable. Dictated by Pierce Martinez MD @ Jul 25 2020 11:39AM Signed by Dr. Pierce Martinez @ Jul 25 2020 11:49AM
[2020-07-25] MEDS: cefTRIAXone 1 GM in Premix Bag 1 BAG IV SCH (13:10)
--- NOTE | 2020-07-25 20:49 | OR ---
SURGEON: Bethany Camacho M.D. DATE OF PROCEDURE: 07/25/2020 PREOPERATIVE DIAGNOSIS: Gross hematuria. POSTOPERATIVE DIAGNOSIS: Gross hematuria. OPERATION: Cystoscopy. FINDINGS: No tumors or stones were found in the bladder. The bladder was heavily trabeculated. DESCRIPTION OF PROCEDURE: The patient was given no anesthesia. She was in dorsal lithotomy position. The TUR drip catheter was taken out. A 25-Croatian cystoscope was introduced in the bladder. She had a large diverticulum off to the left of the bladder that was inspected, had few blood clots in it. The rest of the bladder was otherwise heavily trabeculated, 4+, but no lesions were seen in the bladder. At this point, attempted evacuating clots from the diverticulum. It caused the patient excessive discomfort, so the procedure at this point was stopped. The catheter was placed back and the irrigation was restarted, and she was sent back to her room in stable condition. There was no active bleeding at this time, should be able to send her home in the morning. DAMARIS / JIMBO /[id number]
[2020-07-26 06:54] LABS: BLOOD UREA NITROGEN,BUN 20 mg/dL (7.0-18.0); CARBON DIOXIDE,CO2 24.9 mmol/L (21.0-32.0); CHLORIDE,CL 105 mmol/L (98-107); GLUCOSE RANDOM 108 mg/dL (74-106); POTASSIUM,K 4.2 mmol/L (3.5-5.1); SODIUM,NA 140 mmol/L (136-145)
[2020-07-26] MEDS: Acetaminophen 325 MG Tab PO PRN (09:27)
[2020-07-26] MEDS: cefTRIAXone 1 GM in Premix Bag 1 BAG IV SCH (11:32)
--- NOTE | 2020-07-26 14:05 | PCM.PN ---
- General Info Date of Service: 07/26/20 Admission Dx/Problem (Free Text): Admission Diagnosis/Problem Admission Diagnosis/Problem Hematuria Subjective Update: Doing well today, perineum is sore. No chest pain or SOB. Functional Status: Reports: Pain Controlled, Tolerating Diet, Ambulating - Review of Systems General: Reports: No Symptoms. Denies: Weakness, Fatigue Gastrointestinal: Reports: No Symptoms. Denies: Abdominal Pain, Nausea, Vomiting Genitourinary: Reports: Other (sore perineum from manipulation) Skin: Reports: No Symptoms Neurological: Reports: No Symptoms Psychiatric: Reports: No Symptoms - Patient Data Vitals - Most Recent: Last Vital Signs Temp 97.3 F 07/26/20 12:00 Pulse 73 07/26/20 12:00 Resp 16 07/26/20 12:00 BP 112/52 L 07/26/20 12:00 Pulse Ox 96 07/26/20 12:00 Weight - Most Recent: 45.45 kg I&O - Last 24 Hours: Intake & Output 07/25/20 07/26/20 07/26/20 22:59 06:59 14:59 Intake Total 400 300 50 Output Total 0 1150 Balance 400 -850 50 Lab Results Last 24 Hours: Laboratory Results - last 24 hr 07/26/20 07/26/20 Range/Units 05:32 05:32 WBC 7.56 (4.0-11.0) K/uL RBC 4.57 (4.30-5.90) M/uL Hgb 13.8 (12.0-16.0) g/dL Hct 43.0 (36.0-46.0) % MCV 94.1 (80.0-98.0) fL MCH 30.2 (27.0-32.0) pg MCHC 32.1 (31.0-37.0) g/dL RDW Std Deviation 43.5 (28.0-62.0) fl RDW Coeff of Judson 13 (11.0-15.0) % Plt Count 358 (150-400) K/uL MPV 10.50 (7.40-12.00) fL Neut % (Auto) 65.1 (48.0-80.0) % Lymph % (Auto) 24.7 (16.0-40.0) % Gates % (Auto) 8.6 (0.0-15.0) % Eos % (Auto) 1.3 (0.0-7.0) % Baso % (Auto) 0.3 (0.0-1.5) % Neut # (Auto) 4.9 (1.4-5.7) K/uL Lymph # (Auto) 1.9 (0.6-2.4) K/uL Gates # (Auto) 0.7 (0.0-0.8) K/uL Eos # (Auto) 0.1 (0.0-0.7) K/uL Baso # (Auto) 0.0 (0.0-0.1) K/uL Nucleated RBC % 0.0 /100WBC Nucleated RBCs # 0 K/uL Sodium 140 (136-145) mmol/L Potassium 4.2 (3.5-5.1) mmol/L Chloride 105 (98-107) mmol/L Carbon Dioxide 24.9 (21.0-32.0) mmol/L BUN 20 H (7.0-18.0) mg/dL Creatinine 0.8 (0.6-1.0) mg/dL Est Cr Clr Drug Dosing 35.55 mL/min Estimated GFR (MDRD) > 60.0 ml/min Glucose 108 H (74-106) mg/dL Calcium 8.6 (8.5-10.1) mg/dL Med Orders - Current: Current Medications Acetaminophen (Tylenol) 650 mg PO Q4H PRN PRN Reason: Pain (Mild 1-3)/fever Last Admin: 07/26/20 09:27 Dose: 650 mg Documented by: Ceftriaxone Sodium/Dextrose 1 (gm/ Premix) 50 mls @ 100 mls/hr IV Q24H RHETT Last Admin: 07/26/20 11:32 Dose: 100 mls/hr Documented by: Ondansetron HCl (Zofran) 4 mg IVPUSH Q4H PRN PRN Reason: Nausea Sodium Chloride (Saline Flush) 2.5 ml FLUSH ASDIRECTED PRN PRN Reason: Keep Vein Open Discontinued Medications Sodium Chloride (Normal Saline) 1,000 mls @ 100 mls/hr IV ASDIRECTED RHETT Lidocaine HCl (Xylocaine 2% Jelly) 5 ml MUCMEM ONETIME ONE Stop: 07/24/20 23:50 Last Admin: 07/25/20 00:00 Dose: 5 ml Documented by: Lidocaine HCl (Xylocaine 4% Top Soln) 5 ml MUCMEM ONETIME ONE Stop: 07/24/20 23:49 Last Admin: 07/25/20 01:14 Dose: Not Given Documented by: Melatonin (Melatonin) 3 mg PO NOW STA Stop: 07/25/20 02:03 Last Admin: 07/25/20 03:17 Dose: 3 mg Documented by: Sodium Chloride (Saline Flush) 10 ml FLUSH ASDIRECTED PRN PRN Reason: Keep Vein Open Sodium Chloride (Saline Flush) 2.5 ml FLUSH ASDIRECTED PRN PRN Reason: Keep Vein Open - Exam General: Alert, Oriented, Cooperative, No Acute Distress Lungs: Clear to Auscultation, Normal Respiratory Effort Cardiovascular: Regular Rate, Regular Rhythm GI/Abdominal Exam: Normal Bowel Sounds, Soft, Non-Tender (Female) Exam: Other (urine pink tinged, Irrigations off. ) Extremities: Normal Inspection, Normal Range of Motion, Non-Tender, No Pedal Edema Psy/Mental Status: Alert, Normal Affect, Normal Mood Sepsis Event Note - Evaluation Sepsis Screening Result: No Definite Risk - Focused Exam Vital Signs: Vital Signs Temp Pulse Resp BP Pulse Ox 07/26/20 12:00 97.3 F 73 16 112/52 L 96 07/26/20 08:10 97.5 F 102 H 16 113/79 97 07/26/20 04:25 98.1 F 77 16 119/55 L 95 - Problem List & Annotations (1) Hematuria syndrome SNOMED Code(s): 24413128 Code(s): R31.9 - HEMATURIA, UNSPECIFIED Status: Acute Current Visit: Yes - Problem List Review Problem List Initiated/Reviewed/Updated: Yes - My Orders Last 24 Hours: My Active Orders 07/26/20 10:25 Remove Zuniga Catheter [Urinary Catheter Removal] [RC] PER UNIT ROUTINE - Plan Plan:: This 85-year-old female admitted for hematuria status post Zuniga catheter placement 1. Hematuria - Continue Zuniga irrigations, manual irrigations as needed - Consult Dr. Camacho, see operative report from cystoscopy - Spoke with Dr Camacho today, recommended removal of zuniga and monitor urination. Follow up with him on Wednesday. If unable to urinate with call Dr Camacho. VTE prophylaxis: SCDs Dispo: later today.
--- NOTE | 2020-07-26 20:51 | PCM.DCSUM1 ---
Discharge Summary - Hospital Course Brief History: This 85-year-old female with PMH of insomnia and some bladder emptying issues presented to the ER with concerns of hematuria. She reports that she went to her PCP yesterday with concerns of possible urinary tract infection due to increasing frequency. She reports that at home she was going to the bathroom every 20 minutes and only urinating very small amounts. She felt that her abdomen was very distended as well. In the PCP office a Zuniga catheter was placed and approximately 2 L of urine was removed. When she was leaving she did note that some blood and blood clots were noted in the catheter. By the time she arrived home the catheter was filled completely with blood. She monitored it for the next couple hours and it did not improve. She arrived to the ER for evaluation. She denies any fevers chills chest pain shortness of breath or abdominal pain. No focal neurological deficits. In the ER Dr. Camacho was consulted recommended continuous Zuniga irrigations. She denies any use of Benadryl or Tylenol PM recently medication she takes at home include Ambien and melatonin. She denies any history of smoking no alcohol use or recreational drug use. She was recently admitted for diverticulitis in February 2020 and has done well since then. In the ER no leukocytosis was noted hemoglobin was stable at 14.0. Mild TANO noted with creatinine 1.2 and BUN 22. Continues irrigations continued. She will be admitted inpatient for hematuria with consultation from urology. Diagnosis: Stroke: No - Discharge Data Discharge Date: 07/26/20 Discharge Disposition: Home, Self-Care 01 Condition: Good - Referral to Home Health Primary Care Physician: Xin Chaudhary NP - Discharge Diagnosis/Problem(s) (1) Hematuria syndrome SNOMED Code(s): 88010568 ICD Code: R31.9 - HEMATURIA, UNSPECIFIED Status: Acute - Patient Summary/Data Consults: Consultations 07/24/20 23:53 Consult to Physician [CONS] Stat Hospital Course: Admitting Diagnoses: Hematuria retention Discharge Diagnoses: Hematuria retention Hannah was admitted secondary to hematuria s/p zuniga placement at PCP clinic. Dr Camacho consulted. Hgb stable. Bladder irrigations were continued. 07/25 Dr Camacho took patient for cystoscopy. See report. bladder diverticulum noted with thickened bladder wall. Zuniga remained in overnight. Zuniga removed today. Patient was able urinate per self prior to discharge. She will be discharged home today with close follow up with Dr Camacho. Will send 5 more says of Keflex PO for UTI. She is to return to ED or clinic if concerns should arise sooner. - Patient Instructions Diet: Regular Diet as Tolerated Activity: As Tolerated Notify Provider of: Fever, Increased Pain, Swelling and Redness, Drainage, Nausea and/or Vomiting - Discharge Plan *PRESCRIPTION DRUG MONITORING PROGRAM REVIEWED*: Not Applicable *COPY OF PRESCRIPTION DRUG MONITORING REPORT IN PATIENT BRIGHT: Not Applicable Prescriptions/Med Rec: cephALEXin [Keflex] 500 mg PO Q8H #15 cap Home Medications: Home Meds Zolpidem [Ambien] 0.5 dose PO BEDTIME PRN 03/07/20 [History] cephALEXin [Keflex] 500 mg PO Q8H #15 cap 07/26/20 [Rx] Oxygen Therapy Mode: Room Air Patient Handouts: Indwelling Urinary Catheter Care, Adult, Hematuria, Adult Referrals: Xin Chaudhary NP [Primary Care Provider] - 07/30/20 8:30 am Bethany Camacho MD [Physician] - 07/29/20 3:00 pm () - Discharge Summary/Plan Comment DC Time >30 min.: No - Patient Data Vitals - Most Recent: Last Vital Signs Temp 97.3 F 07/26/20 12:00 Pulse 73 07/26/20 12:00 Resp 16 07/26/20 12:00 BP 112/52 L 07/26/20 12:00 Pulse Ox 96 07/26/20 12:00 Weight - Most Recent: 45.45 kg I&O - Last 24 hours: Intake & Output 07/26/20 07/26/20 07/26/20 06:59 14:59 22:59 Intake Total 300 50 Output Total 1150 Balance -850 50 Lab Results - Last 24 hrs: Laboratory Results - last 24 hr 07/26/20 07/26/20 Range/Units 05:32 05:32 WBC 7.56 (4.0-11.0) K/uL RBC 4.57 (4.30-5.90) M/uL Hgb 13.8 (12.0-16.0) g/dL Hct 43.0 (36.0-46.0) % MCV 94.1 (80.0-98.0) fL MCH 30.2 (27.0-32.0) pg MCHC 32.1 (31.0-37.0) g/dL RDW Std Deviation 43.5 (28.0-62.0) fl RDW Coeff of Judson 13 (11.0-15.0) % Plt Count 358 (150-400) K/uL MPV 10.50 (7.40-12.00) fL Neut % (Auto) 65.1 (48.0-80.0) % Lymph % (Auto) 24.7 (16.0-40.0) % [place] % (Auto) 8.6 (0.0-15.0) % Eos % (Auto) 1.3 (0.0-7.0) % Baso % (Auto) 0.3 (0.0-1.5) % Neut # (Auto) 4.9 (1.4-5.7) K/uL Lymph # (Auto) 1.9 (0.6-2.4) K/uL [place] # (Auto) 0.7 (0.0-0.8) K/uL Eos # (Auto) 0.1 (0.0-0.7) K/uL Baso # (Auto) 0.0 (0.0-0.1) K/uL Nucleated RBC % 0.0 /100WBC Nucleated RBCs # 0 K/uL Sodium 140 (136-145) mmol/L Potassium 4.2 (3.5-5.1) mmol/L Chloride 105 (98-107) mmol/L Carbon Dioxide 24.9 (21.0-32.0) mmol/L BUN 20 H (7.0-18.0) mg/dL Creatinine 0.8 (0.6-1.0) mg/dL Est Cr Clr Drug Dosing 35.55 mL/min Estimated GFR (MDRD) > 60.0 ml/min Glucose 108 H (74-106) mg/dL Calcium 8.6 (8.5-10.1) mg/dL Med Orders - Current: Current Medications Discontinued Medications Acetaminophen (Tylenol) 650 mg PO Q4H PRN PRN Reason: Pain (Mild 1-3)/fever Last Admin: 07/26/20 09:27 Dose: 650 mg Documented by: Sodium Chloride (Normal Saline) 1,000 mls @ 100 mls/hr IV ASDIRECTED RHETT Ceftriaxone Sodium/Dextrose 1 (gm/ Premix) 50 mls @ 100 mls/hr IV Q24H [facility] Last Admin: 07/26/20 11:32 Dose: 100 mls/hr Documented by: Lidocaine HCl (Xylocaine 2% Jelly) 5 ml MUCMEM ONETIME ONE Stop: 07/24/20 23:50 Last Admin: 07/25/20 00:00 Dose: 5 ml Documented by: Lidocaine HCl (Xylocaine 4% Top Soln) 5 ml MUCMEM ONETIME ONE Stop: 07/24/20 23:49 Last Admin: 07/25/20 01:14 Dose: Not Given Documented by: Melatonin (Melatonin) 3 mg PO NOW STA Stop: 07/25/20 02:03 Last Admin: 07/25/20 03:17 Dose: 3 mg Documented by: Ondansetron HCl (Zofran) 4 mg IVPUSH Q4H PRN PRN Reason: Nausea Sodium Chloride (Saline Flush) 10 ml FLUSH ASDIRECTED PRN PRN Reason: Keep Vein Open Sodium Chloride (Saline Flush) 2.5 ml FLUSH ASDIRECTED PRN PRN Reason: Keep Vein Open Sodium Chloride (Saline Flush) 2.5 ml FLUSH ASDIRECTED PRN PRN Reason: Keep Vein Open
== END 2020-07-26 17:13 | disposition home or self-care (01) | DRG 699 ==
LOC: MW.ED 22:33 → MW.MS 23:51
PROVIDERS: ADMIT Internal Medicine; ATTEND Internal Medicine
PROC: 0TCB8ZZ Extirpation of Matter from Bladder, Via Natural or Artificial Opening Endoscopic (ICD-10-PCS; principal; 2020-07-25)
DX: T83.83XA Hemorrhage due to genitourinary prosthetic devices, implants and grafts, initial encounter (principal); N39.0 Urinary tract infection, site not specified; N17.9 Acute kidney failure, unspecified; R33.9 Retention of urine, unspecified; N32.3 Diverticulum of bladder; R31.9 Hematuria, unspecified; Z20.828 Contact with and (suspected) exposure to other viral communicable diseases; H54.7 Unspecified visual loss; M19.90 Unspecified osteoarthritis, unspecified site; Z79.899 Other long term (current) drug therapy; Z88.0 Allergy status to penicillin; Z93.6 Other artificial openings of urinary tract status
CPT/HCPCS: 36415; 51700; 51702; 74176; 74176-26; 80048; 80053; 85025; 99284; 99284-25; A9270-GY; J0696; U0002

== ENCOUNTER 2020-07-27 13:17 | Emergency (ER) | payer MEDICARE, BC ==
--- NOTE | 2020-07-27 13:50 | EDM.PDOC ---
ED HPI GENERAL MEDICAL PROBLEM - General Chief Complaint: Genitourinary Problem Stated Complaint: COMPLICATIONS W/ CATHETER Time Seen by Provider: 07/27/20 13:21 Source of Information: Reports: Patient History Limitations: Reports: No Limitations - History of Present Illness INITIAL COMMENTS - FREE TEXT/NARRATIVE: HISTORY AND PHYSICAL: History of present illness: Patient is an 85-year-old female who presents to the ED today with concern that her catheter may not be draining as it should be. Patient states she is concerned that is not draining because there was a small amount of foam on top of her urine. 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 Patient states she is on antibiotics for urinary tract infection. Patient states that she is also concerned that her catheter may not be draining as it should be as she noticed a small clot in her urine. Patient denies any abdominal pain, distention, or the sensation of needing to urinate. Patient was admitted to the hospital on 07/25/2020 and was discharged yesterday. During her hospital stay, she had a continuous bladder irrigation and had a cystoscopy by the urologist, Dr. Dominguez for gross hematuria. Patient states she has a follow-up appointment tomorrow with Dr. Dominguez. During the cystoscopy, there were no tumors, or stones found in the bladder. The bladder he was heavily trabeculated but no acute bleeding was seen at the time. However, during the procedure, there was attempt to evacuate blood clots from the diverticulum in the bladder, but due to patient discomfort, the procedure was stopped. Patient remained hemodynamically stable throughout stay in hospital and d/c yesterday with antibiotics, Keflex PO x 5 days and a close follow up with Dr. Dominguez. Patient denies fever, chills, chest pain, shortness of breath, or cough. Denies headache, neck stiff ness, change in vision, syncope, or near syncope. Denies nausea, vomiting, abdominal pain, diarrhea, constipation, or dysuria. Has not noted any blood in stool. Patient has been eating and drinking appropriately. Review of systems: As per history of present illness and below otherwise all systems reviewed and negative. Past medical history: As per history of present illness and as reviewed below otherwise noncontributory. Surgical history: As per history of present illness and as reviewed below otherwise noncontributory. Social history: See social history for further information Family history: As per history of present illness and as reviewed below otherwise noncontributory. Physical exam: General: Patient is alert, oriented, and in no acute distress. Patient sitting comfortably on exam table. Vitals stable and reviewed by me HEENT: Atraumatic, normocephalic, pupils equal and reactive bilaterally, negative for conjunctival pallor or scleral icterus, mucous membranes moist, TMs normal bilaterally, throat clear, neck supple, nontender, trachea midline. No drooling or trismus noted. No meningeal signs. No hot potato voice noted. Lungs: Patient speaking clearly without breathlessness, no wheezing or stridor, no accessory muscle use or respiratory distress. 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 Abdomen: Soft, nondistended, nontender. Negative for masses or hepatosplenomegaly. Negative for costovertebral tenderness. Pelvis: Stable nontender. Genitourinary: There is dark colored urine draining into zuniga bag. 38CC on bladderscan with urine actively passing/draining into zuniga bag. Rectal: Deferred. Skin: Intact, warm, dry. No lesions or rashes noted. Extremities: Atraumatic, negative for cords or calf pain. Neurovascular unremarkable. Neuro: Awake, alert, oriented. Cranial nerves II through XII unremarkable. Cerebellum unremarkable. Motor and sensory unremarkable throughout. Exam nonfocal. Notes: 38cc on BladderScan and Zuniga is draining appropriately without intervention. Urine is passing freely into zuniga bag without intervention today. Hcg is stable today and compared to prior hospital visit stable. Signs and symptoms are prompt return to the ED thoroughly discussed with patient. Discussed importance for follow-up with Dr. Dominguez tomorrow. Voices understanding and is agreeable to plan of care. Denies any further questions or concerns at this time. Diagnostics: Bladder scan, CBC Therapeutics: None Prescription: None Impression: Encounter for evaluation of Zuniga catheter Plan: 1. Continue to monitor your catheter for urine output as discussed. Continue your at home medication/including your antibiotic, as prescribed to you. 2. Follow-up with the urologist, Dr. Dominguez, as scheduled tomorrow. Return to the ED as needed and as discussed. Definitive disposition and diagnosis as appropriate pending reevaluation and review of above. - Related Data Allergies Allergy/AdvReac Type Severity Reaction Status Date / Time Penicillins Allergy Other Verified 07/27/20 13:39 Home Meds: Home Meds Zolpidem [Ambien] 0.5 dose PO BEDTIME PRN 03/07/20 [History] cephALEXin [Keflex] 500 mg PO Q8H #15 cap 07/26/20 [Rx] Melatonin 3 mg PO ASDIRECTED 07/27/20 [History] Multivitamin [Multivitamins] 1 each PO DAILY 07/27/20 [History] Past Medical History - Past Health History Medical/Surgical History: Denies Medical/Surgical History HEENT History: Reports: Impaired Vision Cardiovascular History: Reports: None Respiratory History: Reports: None Gastrointestinal History: Reports: Diverticulosis, Other (See Below) Other Gastrointestinal History: colitis Genitourinary History: Reports: None MEDICAL ASST History: Reports: None Musculoskeletal History: Reports: Arthritis Neurological History: Reports: None Psychiatric History: Reports: None Endocrine/Metabolic History: Reports: None Hematologic History: Reports: Other (See Below) Other Hematologic History: low potassium in past Immunologic History: Reports: None Oncologic (Cancer) History: Reports: None Dermatologic History: Reports: None - Infectious Disease History Infectious Disease History: Reports: None Other Infectious Disease History: is unsure of hx - Past Surgical History Head Surgeries/Procedures: Reports: None HEENT Surgical History: Reports: None Cardiovascular Surgical History: Reports: None Respiratory Surgical History: Reports: None GI Surgical History: Reports: None Female Surgical History: Reports: None Endocrine Surgical History: Reports: None Neurological Surgical History: Reports: None Musculoskeletal Surgical History: Reports: None Oncologic Surgical History: Reports: None Dermatological Surgical History: Reports: None Social & Family History - Family History Family Medical History: Noncontributory - Caffeine Use Caffeine Use: Reports: None ED ROS GENERAL - Review of Systems Review Of Systems: Comprehensive ROS is negative, except as noted in HPI. ED EXAM, GENERAL - Physical Exam Exam: See Below (see dictation) Course - Vital Signs Last Recorded V/S: Last Vital Signs Temp 98.8 F 07/27/20 13:40 Pulse 75 07/27/20 13:40 Resp 17 07/27/20 13:40 BP 148/59 H 07/27/20 13:40 Pulse Ox 96 07/27/20 13:40 - Orders/Labs/Meds Orders: Active Orders 24 hr Category Date Time Status Bladder Scan [RC] ASDIRECTED Care 07/27/20 13:43 Active Labs: Laboratory Tests 07/27/20 Range/Units 14:07 WBC 8.63 (4.0-11.0) K/uL RBC 4.59 (4.30-5.90) M/uL Hgb 13.9 (12.0-16.0) g/dL Hct 42.8 (36.0-46.0) % MCV 93.2 (80.0-98.0) fL MCH 30.3 (27.0-32.0) pg MCHC 32.5 (31.0-37.0) g/dL RDW Std Deviation 42.4 (28.0-62.0) fl RDW Coeff of Judson 13 (11.0-15.0) % Plt Count 372 (150-400) K/uL MPV 10.20 (7.40-12.00) fL Neut % (Auto) 66.0 (48.0-80.0) % Lymph % (Auto) 25.3 (16.0-40.0) % Bates % (Auto) 7.2 (0.0-15.0) % Eos % (Auto) 1.2 (0.0-7.0) % Baso % (Auto) 0.3 (0.0-1.5) % Neut # (Auto) 5.7 (1.4-5.7) K/uL Lymph # (Auto) 2.2 (0.6-2.4) K/uL Bates # (Auto) 0.6 (0.0-0.8) K/uL Eos # (Auto) 0.1 (0.0-0.7) K/uL Baso # (Auto) 0.0 (0.0-0.1) K/uL Nucleated RBC % 0.0 /100WBC Nucleated RBCs # 0 K/uL Departure - Departure Time of Disposition: 14:20 Disposition: Home, Self-Care 01 Clinical Impression: Encounter for evaluation of Zuniga catheter - Discharge Information Referrals: Xin Chaudhary NP [Primary Care Provider] - Forms: ED Department Discharge Additional Instructions: The following information is given to patients seen in the emergency department who are being discharged to home. This information is to outline your options for follow-up care. We provide all patients seen in our emergency department with a follow-up referral. The need for follow-up, as well as the timing and circumstances, are variable depending upon the specifics of your emergency department visit. If you don't have a primary care physician on staff, we will provide you with a referral. We always advise you to contact your personal physician following an emergency department visit to inform them of the circumstance of the visit and for follow-up with them and/or the need for any referrals to a consulting specialist. The emergency department will also refer you to a specialist when appropriate. This referral assures that you have the opportunity for follow-up care with a specialist. All of these measure are taken in an effort to provide you with optimal care, which includes your follow-up. Under all circumstances we always encourage you to contact your private physician who remains a resource for coordinating your care. When calling for follow-up care, please make the office aware that this follow-up is from your recent emergency room visit. If for any reason you are refused follow-up, please contact the [facility] Emergency Department at and asked to speak to the emergency department charge nurse. [facility] [address] [place] [address] [address] [facility] - Urology, Dr. Dominguez [address] [place] [id number] 1. Continue to monitor your catheter for urine output as discussed. Continue your at home medication/including your antibiotic, as prescribed to you. 2. Follow-up with the urologist, Dr. Dominguez, as scheduled tomorrow. Return to the ED as needed and as discussed. Sepsis Event Note (ED) - Focused Exam Vital Signs: Vital Signs Temp Pulse Resp BP Pulse Ox 07/27/20 13:40 98.8 F 75 17 148/59 H 96 - My Orders Last 24 Hours: My Active Orders 07/27/20 13:43 Bladder Scan [RC] ASDIRECTED - Assessment/Plan Last 24 Hours: My Active Orders 07/27/20 13:43 Bladder Scan [RC] ASDIRECTED
== END 2020-07-27 14:46 | disposition home or self-care (01) ==
LOC: MW.ED 13:17
DX: Z46.6 Encounter for fitting and adjustment of urinary device (principal); Z88.0 Allergy status to penicillin
CPT/HCPCS: 36415; 85025; 99283; 99284-25

== ENCOUNTER 2020-08-04 08:28 | Emergency (ER) | payer MEDICARE, BC ==
[2020-08-04] MEDS ORDERED: Ciprofloxacin 500 MG Tab PO ONE (09:10)
--- NOTE | 2020-08-04 09:20 | EDM.PDOC ---
ED [facility] GENERAL MEDICAL PROBLEM - General Chief Complaint: Genitourinary Problem Stated Complaint: BLOOD IN CATHETER Time Seen by Provider: 08/04/20 08:37 - History of Present Illness INITIAL COMMENTS - FREE TEXT/NARRATIVE: HISTORY AND PHYSICAL: History of present illness: This 85-year-old female with past medical history of urinary retention, intermittent constipation, and insomnia presents emergency department complaining of change in the Gonzalez catheter urine color. Patient denies any fevers, nausea, vomiting, diarrhea or other associated signs or symptoms. Review of her record shows there was no urine culture on her last visit. She has had a relatively difficult course and has had trouble getting follow-up. Now the color of her bag is purple and she was concerned. Denies any other associated signs or symptoms. No other modifying, aggravating or alleviating factors. Review of systems: A 10-point review of systems, other than pertinent positives and negatives as stated per HPI, is otherwise negative. Past medical history: As per history of present illness and as reviewed below otherwise noncontributory. Surgical history: As per history of present illness and as reviewed below otherwise noncontribut ory. Social history: No reported history of drug or alcohol abuse. Family history: As per history of present illness and as reviewed below otherwise noncontributory. Physical exam: VITAL SIGNS: Reviewed. GENERAL: Just about her condition but nontoxic and otherwise well-appearing HEAD: No signs of head trauma. EYES: Pupils are equal. Extraocular motions intact. EARS: Hearing grossly intact. MOUTH: Oropharynx is normal. NECK: No adenopathy, no JVD. CHEST: Chest with clear breath sounds bilaterally. No wheezes, rales, or rhonchi. CARDIAC: Regular rate and rhythm. Normal S1 and S2, without murmurs, gallops, or rubs. VASCULAR: Peripheral pulses normal and equal in all extremities. ABDOMEN: Soft, without detectable tenderness. No sign of distention. No rebound or guarding, and no masses palpated. MUSCULOSKELETAL: Good range of motion of all major joints. Extremities without clubbing, cyanosis or edema. NEUROLOGIC EXAM: Alert and oriented x 3. No focal sensory or motor deficits. Speech normal. Follows commands. PSYCHIATRIC: Mood normal. SKIN: No rash or lesions. : Not disrobed. Gonzalez catheter is in place with bag next to bed. The bag is full purple urine. The catheter tubing shows a dark purple color. Initial Differential Diagnosis & Plan: Purple urine bag syndrome, hematuria, complicated urinary tract infection, pyelonephritis, cystitis Patient is at risk for this syndrome secondary to her indwelling catheter. There is an indigo colored urinary material. The patient does use melatonin which has a similar metabolism pathway to tryptophan. Other entities in the differential diagnosis include bile acid conjugate's in the urine, bacterial overgrowth, infection with Providencia, Klebsiella, Proteus, E. coli, enterococcus, Morganella, and Pseudomonas. We will need to evaluate her underlying renal function, order a UA, urine culture, and evaluate her EKG for prolonged QT interval. If her underlying renal function, EKG, and other evaluation is normal we can proceed with oral fluoroquinolones. Definitive disposition and diagnosis as appropriate pending reevaluation and review of above. left side and rectum Pain Score (Numeric/FACES): 6 - Related Data Allergies Allergy/AdvReac Type Severity Reaction Status Date / Time Penicillins Allergy Other Verified 08/04/20 08:43 Home Meds: Home Meds Zolpidem [Ambien] 0.5 dose PO BEDTIME PRN 03/07/20 [History] Melatonin 3 mg PO ASDIRECTED 07/27/20 [History] Multivitamin [Multivitamins] 1 each PO DAILY 07/27/20 [History] Ciprofloxacin [Ciprofloxacin HCl] 500 mg PO BID 7 Days #13 tab 08/04/20 [Rx] Lactobacillus 3/Fos/Pantethine [Probiotic & Acidophilus] 1 each PO BID 30 Days #60 capsule 08/04/20 [Rx] Psyllium Husk (With Sugar) [Metamucil Powder] 2 tbsp PO TID 14 Days #1042 powder 08/04/20 [Rx] Past Medical History - Past Health History Medical/Surgical History: Denies Medical/Surgical History HEENT History: Reports: Impaired Vision Cardiovascular History: Reports: None Respiratory History: Reports: None Gastrointestinal History: Reports: Diverticulosis, Other (See Below) Other Gastrointestinal History: colitis Genitourinary History: Reports: None DIRECTOR OF MANAGED SERVICES History: Reports: None Musculoskeletal History: Reports: Arthritis Neurological History: Reports: None Psychiatric History: Reports: None Endocrine/Metabolic History: Reports: None Hematologic History: Reports: Other (See Below) Other Hematologic History: low potassium in past Immunologic History: Reports: None Oncologic (Cancer) History: Reports: None Dermatologic History: Reports: None - Infectious Disease History Infectious Disease History: Reports: None Other Infectious Disease History: is unsure of hx - Past Surgical History Head Surgeries/Procedures: Reports: None HEENT Surgical History: Reports: None Cardiovascular Surgical History: Reports: None Respiratory Surgical History: Reports: None GI Surgical History: Reports: None Female Surgical History: Reports: None Endocrine Surgical History: Reports: None Neurological Surgical History: Reports: None Musculoskeletal Surgical History: Reports: None Oncologic Surgical History: Reports: None Dermatological Surgical History: Reports: None Social & Family History - Family History Family Medical History: Noncontributory - Caffeine Use Caffeine Use: Reports: None - Recreational Drug Use Recreational Drug Use: No ED ROS GENERAL - Review of Systems Review Of Systems: See Below (noted) ED EXAM, RENAL/ - Physical Exam Exam: See Below (noted) #1 Interpretation EKG Interpretation Comments: 12 lead EKG interpretation Obtained: August 04, 2020 at 9:46 AM Rhythm: Sinus Rate: 67 Lamar: Normal Intervals: Normal, specifically the QTc is 447 [address]/T Segments: No acute ischemic changes Interpretation: Sinus Rhythm Course - Vital Signs Last Recorded V/S: Last Vital Signs Temp 95.9 F L 08/04/20 08:40 Pulse 72 08/04/20 10:38 Resp 16 08/04/20 08:40 BP 142/55 H 08/04/20 10:38 Pulse Ox 95 08/04/20 10:38 - Orders/Labs/Meds Orders: Active Orders 24 hr Category Date Time Status EKG 12 Lead [EKG Documentation Completion] [RC] STAT Care 08/04/20 09:10 Active Insert Gonzalez Catheter [Insert Urinary Catheter] [OM.PC] Care 08/04/20 09:30 Ordered Stat Urinary Catheter Assessment [RC] ASDIRECTED Care 08/04/20 09:31 Active Urinary Catheter Removal [RC] ASDIRECTED Care 08/04/20 09:10 Active CULTURE BLOOD [BC] Stat Lab 08/04/20 09:47 Received CULTURE BLOOD [BC] Stat Lab 08/04/20 09:56 Received CULTURE URINE [RM] Stat Lab 08/04/20 09:04 Received Blood Culture x2 Reflex Set [OM.PC] Stat Oth 08/04/20 09:30 Ordered Labs: Laboratory Tests 08/04/20 08/04/20 08/04/20 Range/Units 09:04 09:47 09:47 WBC 11.48 H (4.0-11.0) K/uL RBC 4.42 (4.30-5.90) M/uL Hgb 13.4 (12.0-16.0) g/dL Hct 41.7 (36.0-46.0) % MCV 94.3 (80.0-98.0) fL MCH 30.3 (27.0-32.0) pg MCHC 32.1 (31.0-37.0) g/dL RDW Std Deviation 42.9 (28.0-62.0) fl RDW Coeff of Judson 13 (11.0-15.0) % Plt Count 366 (150-400) K/uL MPV 9.90 (7.40-12.00) fL Neut % (Auto) 84.9 H (48.0-80.0) % Lymph % (Auto) 8.3 L (16.0-40.0) % [place] % (Auto) 6.4 (0.0-15.0) % Eos % (Auto) 0.2 (0.0-7.0) % Baso % (Auto) 0.2 (0.0-1.5) % Neut # (Auto) 9.8 H (1.4-5.7) K/uL Lymph # (Auto) 1.0 (0.6-2.4) K/uL [place] # (Auto) 0.7 (0.0-0.8) K/uL Eos # (Auto) 0.0 (0.0-0.7) K/uL Baso # (Auto) 0.0 (0.0-0.1) K/uL Nucleated RBC % 0.0 /100WBC Nucleated RBCs # 0 K/uL Sodium 135 L (136-145) mmol/L Potassium 4.3 (3.5-5.1) mmol/L Chloride 100 (98-107) mmol/L Carbon Dioxide 26.8 (21.0-32.0) mmol/L BUN 19 H (7.0-18.0) mg/dL Creatinine 0.9 (0.6-1.0) mg/dL Est Cr Clr Drug Dosing 31.53 mL/min Estimated GFR (MDRD) 59.2 ml/min Glucose 134 H (74-106) mg/dL Calcium 8.9 (8.5-10.1) mg/dL Total Bilirubin 0.5 (0.2-1.0) mg/dL AST 28 (15-37) IU/L ALT 55 (14-63) IU/L Alkaline Phosphatase 87 (46-116) U/L Total Protein 6.5 (6.4-8.2) g/dL Albumin 3.4 (3.4-5.0) g/dL Globulin 3.1 (2.6-4.0) g/dL Albumin/Globulin Ratio 1.1 (0.9-1.6) Urine Color RED Urine Appearance CLOUDY Urine pH 6.5 (5.0-8.0) Ur Specific Dale 1.020 (1.001-1.035) Urine Protein >=300 H (NEGATIVE) mg/dL Urine Glucose (UA) NEGATIVE (NEGATIVE) mg/dL Urine Ketones TRACE H (NEGATIVE) mg/dL Urine Occult Blood LARGE H (NEGATIVE) Urine Nitrite POSITIVE H (NEGATIVE) Urine Bilirubin MODERATE H (NEGATIVE) Urine Ictotest NEGATIVE Urine Urobilinogen 1.0 (<2.0) EU/dL Ur Leukocyte Esterase LARGE H (NEGATIVE) Urine RBC TOO NUMEROUS TO CT H (0-2/HPF) Urine WBC TO NUMEROUS TO COUNT H (0-5/HPF) Ur Epithelial Cells OCCASIONAL (NONE-FEW) Urine Bacteria 3+ H (NEGATIVE) Urinalysis Comment Meds: Medications Discontinued Medications Generic Name Dose Route Start Last Admin Trade Name Robiq PRN Reason Stop Dose Admin Ciprofloxacin 500 mg 08/04/20 09:10 08/04/20 09:31 Ciprofloxacin Hcl PO 08/04/20 09:11 500 mg ONETIME ONE Administration - Re-Assessments/Exams Free Text/Narrative Re-Assessment/Exam: 08/04/20 10:51 EKG shows no evidence of QT prolongation or other high risk features to make fluoroquinolones higher risk than usual. The patient has given informed consent for fluoroquinolone treatment. Given that the labs are essentially normal and there is some disagreement in the literature as to whether purple urine bag syndrome requires treatment or not in the setting of otherwise lack of symptoms I am concerned because the patient has had a complicated course. Her Gonzalez catheter was exchanged, and new urine bag was placed, and she will be placed on ciprofloxacin. Her BUN is improving and is actually down from previous visits. She is a very mild leukocytosis which is nonspecific. My diagnostic impression: 1. Purple urine bag syndrome 2. Likely complicated urinary tract infection currently asymptomatic 3. Urine culture pending 4. Blood cultures pending Home on ciprofloxacin Departure - Departure Time of Disposition: 10:15 Disposition: Home, Self-Care 01 Clinical Impression: Purple urine bag syndrome, Complicated UTI (urinary tract infection), Catheter (urine) change required - Discharge Information *PRESCRIPTION DRUG MONITORING PROGRAM REVIEWED*: Not Applicable *COPY OF PRESCRIPTION DRUG MONITORING REPORT IN PATIENT BRIGHT: Not Applicable Prescriptions: Ciprofloxacin [Ciprofloxacin HCl] 500 mg PO BID 7 Days #13 tab Psyllium Husk (With Sugar) [Metamucil Powder] 2 tbsp PO TID 14 Days #1042 powder Lactobacillus 3/Fos/Pantethine [Probiotic & Acidophilus] 1 each PO BID 30 Days #60 capsule Instructions: Indwelling Urinary Catheter Care, Adult, Urinary Tract Infection, Adult, [id number] Referrals: Xin Chaudhary [employer] [Primary Care Provider] - Forms: ED Department Discharge Additional Instructions: The following information is given to patients seen in the emergency department who are being discharged to home. This information is to outline your options for follow-up care. We provide all patients seen in our emergency department with a follow-up referral. The need for follow-up, as well as the timing and circumstances, are variable depending upon the specifics of your emergency department visit. If you don't have a primary care physician on staff, we will provide you with a referral. We always advise you to contact your personal physician following an emergency department visit to inform them of the circumstance of the visit and for follow-up with them and/or the need for any referrals to a consulting specialist. The emergency department will also refer you to a specialist when appropriate. This referral assures that you have the opportunity for follow-up care with a specialist. All of these measure are taken in an effort to provide you with optimal care, which includes your follow-up. Thank you for coming to the [facility] urgency department for your care today. It was Dr. Chan's pleasure to take care of you. [facility] - Urology [address] [place] [id number] [facility] - Primary Care [address] [place] [address] [facility] [address] [place] [address] We have discussed the risks, complications and side effects of fluoroquinolone antibiotics. Given the type of urinary tract infection that you have that causes purple urine bag syndrome (Pseudomonas) the only oral antibiotic that we can give is a fluoroquinolone (ciprofloxacin). 1 of the side effects for this medication on the black box warning is aortic dissection. Other blackbox warnings include tendinitis, tendon rupture, peripheral neuropathy (pains in the hands or feet), confusion, low blood sugar, cardiac arrhythmia and diarrhea. You voiced understanding of these complications and understand that this is the only oral medication we can give to treat the most likely pathogen for your urinary tract infection. If you experience any of the above or following symptoms you must go to the ER or call 911 if they experience any signs or symptoms of a growing aortic aneurysm, which may include: -a throbbing feeling in the stomach area; -deep pain in the back or the side of the stomach area; -steady, gnawing pain in the stomach area that lasts for hours or days; -pain in the jaw, neck, back or chest; -coughing or hoarseness; and -shortness of breath and trouble breathing or swallowing. Your laboratory findings are essentially normal today. Your EKG shows no evidence of QT prolongation (change in the electrical energy making you at risk for cardiac complications with this medicine). Your renal function is e ssentially normal. Please take these medications as prescribed. Sometimes they cause diarrhea and I have started you on medications to help prevent the symptoms/side effects. Return for fever, any of the above blackbox warning symptoms, or any other concerns. Under all circumstances we always encourage you to contact your private physician who remains a resource for coordinating your care. When calling for follow-up care, please make the office aware that this follow-up is from your recent emergency room visit. If for any reason you are refused follow-up, please contact the [facility] Emergency Department at and asked to speak to the emergency department charge nurse. Sepsis Event Note (ED) - Evaluation Sepsis Screening Result: No Definite Risk - Focused Exam Vital Signs: Vital Signs Temp Pulse Resp BP Pulse Ox 08/04/20 10:38 72 142/55 H 95 08/04/20 09:23 76 147/73 H 99 08/04/20 08:40 95.9 F L 70 16 168/61 H 100 - My Orders Last 24 Hours: My Active Orders 08/04/20 09:04 CULTURE URINE [RM] Stat 08/04/20 09:10 EKG 12 Lead [EKG Documentation Completion] [RC] STAT Urinary Catheter Removal [RC] ASDIRECTED 08/04/20 09:30 Insert Gonzalez Catheter [Insert Urinary Catheter] [OM.PC] Stat Blood Culture x2 Reflex Set [OM.PC] Stat 08/04/20 09:31 Urinary Catheter Assessment [RC] ASDIRECTED 08/04/20 09:47 CULTURE BLOOD [BC] Stat 08/04/20 09:56 CULTURE BLOOD [BC] Stat - Assessment/Plan Last 24 Hours: My Active Orders 08/04/20 09:04 CULTURE URINE [RM] Stat 08/04/20 09:10 EKG 12 Lead [EKG Documentation Completion] [RC] STAT Urinary Catheter Removal [RC] ASDIRECTED 08/04/20 09:30 Insert Gonzalez Catheter [Insert Urinary Catheter] [OM.PC] Stat Blood Culture x2 Reflex Set [OM.PC] Stat 08/04/20 09:31 Urinary Catheter Assessment [RC] ASDIRECTED 08/04/20 09:47 CULTURE BLOOD [BC] Stat 08/04/20 09:56 CULTURE BLOOD [BC] Stat
[2020-08-04 10:21] LABS: CARBON DIOXIDE,CO2 26.8 mmol/L (21.0-32.0); POTASSIUM,K 4.3 mmol/L (3.5-5.1)
== END 2020-08-04 12:05 | disposition home or self-care (01) ==
LOC: MW.ED 08:28
DX: N39.0 Urinary tract infection, site not specified (principal); R82.71 Bacteriuria; Z88.0 Allergy status to penicillin; Z79.899 Other long term (current) drug therapy
CPT/HCPCS: 36415; 51702; 80053; 81001; 85025; 87040; 87086; 87088; 87186; 93005; 99283; A9270; 93010

== ENCOUNTER 2020-10-01 07:18 | Day surgery (SDC) | payer MEDICARE, BC ==
[~2020-10-01 07:18] MED LIST: Lactated Ringers 1,000 ML IV SCH; Sodium Chloride 0.9% 10 ML SDV IV PRN; Sodium Chloride 0.9% 10 ML Syringe FLUSH PRN; Sodium Chloride 0.9% 2.5 ML Syringe FLUSH PRN
[2020-10-01] MEDS ORDERED: Bupivacaine 0.5% 10 ML SDV ONE (07:35)
[2020-10-01] MEDS ORDERED: Bupivacaine 25%/EPINEPHrine/PF 0 ML ONE (07:35)
[2020-10-01] MEDS ORDERED: Lidocaine 1% 20 ML MDV ONE (07:35)
[2020-10-01] MEDS: Midazolam 1 MG/ML 2 ML SDV IVPUSH ONE ×2 (08:28→08:33)
[2020-10-01] MEDS ORDERED: ZOLPIDEM PO PRN (09:10)
[2020-10-01] MEDS ORDERED: Non-Formulary Medication 1 Each (Melatonin [Melatonin] 3 MG) PO SCH (09:15)
[2020-10-01] MEDS ORDERED: [UNRECOGNIZED DRUG - OTHER] PO SCH (14:00)
[2020-10-02] MEDS ORDERED: Non-Formulary Medication 1 Each (Multivitamin [Multivitamins] 1 EACH) PO SCH (09:00)
--- NOTE | 2020-12-18 18:48 | OR ---
SURGEON: Bethany Camacho M.D. DATE OF PROCEDURE: 11/27/2020 PREOPERATIVE DIAGNOSIS: Urinary retention. POSTOPERATIVE DIAGNOSIS: Urinary retention. OPERATION: Suprapubic tube placement. DESCRIPTION OF PROCEDURE: The patient was in the supine position. Lower abdomen was prepped and draped in sterile drapes. Lidocaine 1% was infiltrated into an area of about the size of a nickel two fingerbreadths above the symphysis pubis in the midline, that was taken all the way down to the fascia. A stab wound incision was then made and the trocar was introduced in the bladder. The obturator was removed and a 16- Moroccan Gonzalez catheter was introduced in the bladder. The balloon was inflated, pulled against the wall of the bladder, and sutured in place with 2-0 silk. The patient tolerated the procedure well. DAMARIS / JIMBO /[id number]
== END 2020-10-01 10:57 | disposition home or self-care (01) ==
LOC: MW.SDS 07:18
PROVIDERS: ATTEND Urology
DX: R33.9 Retention of urine, unspecified (principal); Z88.0 Allergy status to penicillin; Z79.899 Other long term (current) drug therapy
CPT/HCPCS: 51102; 82962; J2001; J2250; J7120; 51040; J3490

== ENCOUNTER 2021-01-25 18:37 | Emergency (ER) | payer MEDICARE, BC ==
--- NOTE | 2021-01-25 19:52 | EDM.PDOC ---
ED HPI GENERAL MEDICAL PROBLEM - General Chief Complaint: General Stated Complaint: FEELS DIZZY Time Seen by Provider: 01/25/21 18:41 Source of Information: Reports: Patient History Limitations: Reports: No Limitations - History of Present Illness INITIAL COMMENTS - FREE TEXT/NARRATIVE: Presents reporting dizziness. The patient states that she has "not been feeling good" for "a long time". She could not qualify what that meant. She has been getting routine medical care however. Her primary care doctor put her on gabapentin for what sounds like some peripheral neuropathy. She recently weaned herself off of that because she did not like the way it made her feel. She is a poor historian--her [id number] accompanies but she does not know the patient's medical history either. Lives alone. - Related Data Allergies Allergy/AdvReac Type Severity Reaction Status Date / Time Penicillins Allergy Diarrhea Verified 01/25/21 19:13 Home Meds: Home Meds Zolpidem [Ambien] 0.5 dose PO BEDTIME PRN 03/07/20 [History] Melatonin 3 mg PO ASDIRECTED 07/27/20 [History] Multivitamin [Multivitamins] 1 each PO DAILY 07/27/20 [History] Psyllium Husk (With Sugar) [Metamucil Powder] 2 tbsp PO TID 14 Days #1042 powder 08/04/20 [Rx] Lactobacillus 3/Fos/Pantethine [Probiotic & Acidophilus] 1 each PO DAILY 09/25/20 [History] Gabapentin [Neurontin] 100 mg PO DAILY 01/25/21 [History] Magnesium 200 mg PO ASDIRECTED 01/25/21 [History] Past Medical History - Past Health History Medical/Surgical History: Denies Medical/Surgical History HEENT History: Reports: Impaired Vision Cardiovascular History: Reports: None Respiratory History: Reports: None Gastrointestinal History: Reports: Diverticulosis, Other (See Below) Other Gastrointestinal History: colitis Genitourinary History: Reports: None Other Genitourinary History: states had blood in urine and was unable to urinate in 2019 and has had a zuniga catheter in place since that time 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 Musculoskeletal History: Reports: Arthritis Other Musculoskeletal History: fractured little finger left hand Neurological History: Reports: None Psychiatric History: Reports: None Endocrine/Metabolic History: Reports: None Other Endocrine/Metabolic History: states diabetes is controlled by diet Hematologic History: Reports: Other (See Below) Other Hematologic History: low potassium in past Immunologic History: Reports: None Oncologic (Cancer) History: Reports: None Dermatologic History: Reports: None - Infectious Disease History Infectious Disease History: Reports: None Other Infectious Disease History: is unsure of hx - Past Surgical History Head Surgeries/Procedures: Reports: None HEENT Surgical History: Reports: None Cardiovascular Surgical History: Reports: None Respiratory Surgical History: Reports: None GI Surgical History: Reports: None Other GI Surgeries/Procedures: states had a laparoscopy years ago by Dr. Rothman Female Surgical History: Reports: None Other Female Surgeries/Procedures: states had a left lumpectomy Endocrine Surgical History: Reports: None Neurological Surgical History: Reports: None Musculoskeletal Surgical History: Reports: None Other Musculoskeletal Surgeries/Procedures:: surgery little finger left hand Oncologic Surgical History: Reports: None Dermatological Surgical History: Reports: None Social & Family History - Family History Family Medical History: No Pertinent Family History - Caffeine Use Caffeine Use: Reports: None - Recreational Drug Use Recreational Drug Use: No ED ROS GENERAL - Review of Systems Review Of Systems: Comprehensive ROS is negative, except as noted in HPI. ED EXAM, GENERAL - Physical Exam Exam: See Below Exam Limited By: No Limitations General Appearance: Alert, No Apparent Distress Ears: Normal External Exam, Hearing Grossly Normal, Normal TMs Nose: Normal Inspection Throat/Mouth: Normal Inspection Head: Atraumatic, Normocephalic Neck: Normal Inspection Respiratory/Chest: No Respiratory Distress, Lungs Clear, Normal Breath Sounds Cardiovascular: Normal Peripheral Pulses, Regular Rate, Rhythm, No Edema Peripheral Pulses: 2+: Dorsalis Pedis (L), Dorsalis Pedis (R), 3+: Radial (L), Radial (R) GI/Abdominal: Soft, Non-Tender, No Distention, Other Course - Vital Signs Last Recorded V/S: Last Vital Signs Temp 36.7 C 01/25/21 19:15 Pulse 72 01/25/21 19:15 Resp 18 01/25/21 19:15 BP 175/82 H 01/25/21 19:15 Pulse Ox 96 01/25/21 19:15 Orthostatic Blood Pressure [ 173/64 Standing] Orthostatic Blood Pressure [ 173/104 Sitting] Orthostatic Blood Pressure [ 173/92 Supine] - Orders/Labs/Meds Labs: Laboratory Tests 01/25/21 01/25/21 01/25/21 Range/Units 19:50 19:50 20:10 WBC 8.83 (4.0-11.0) K/uL RBC 4.59 (4.30-5.90) M/uL Hgb 14.2 (12.0-16.0) g/dL Hct 43.5 (36.0-46.0) % MCV 94.8 (80.0-98.0) fL MCH 30.9 (27.0-32.0) pg MCHC 32.6 (31.0-37.0) g/dL RDW Std Deviation 42.1 (28.0-62.0) fl RDW Coeff of Judson 12 (11.0-15.0) % Plt Count 442 H (150-400) K/uL MPV 9.80 (7.40-12.00) fL Neut % (Auto) 72.4 (48.0-80.0) % Lymph % (Auto) 19.3 (16.0-40.0) % [place] % (Auto) 6.9 (0.0-15.0) % Eos % (Auto) 1.2 (0.0-7.0) % Baso % (Auto) 0.2 (0.0-1.5) % Neut # (Auto) 6.4 H (1.4-5.7) K/uL Lymph # (Auto) 1.7 (0.6-2.4) K/uL [place] # (Auto) 0.6 (0.0-0.8) K/uL Eos # (Auto) 0.1 (0.0-0.7) K/uL Baso # (Auto) 0.0 (0.0-0.1) K/uL Nucleated RBC % 0.0 /100WBC Nucleated RBCs # 0 K/uL Sodium 134 L (136-145) mmol/L Potassium 4.2 (3.5-5.1) mmol/L Chloride 99 (98-107) mmol/L Carbon Dioxide 25.4 (21.0-32.0) mmol/L BUN 20 H (7.0-18.0) mg/dL Creatinine 0.8 (0.6-1.0) mg/dL Est Cr Clr Drug Dosing 34.81 mL/min Estimated GFR (MDRD) > 60.0 ml/min Glucose 106 (74-106) mg/dL Calcium 9.0 (8.5-10.1) mg/dL Total Bilirubin 0.4 (0.2-1.0) mg/dL AST 18 (15-37) IU/L ALT 32 (14-63) IU/L Alkaline Phosphatase 88 (46-116) U/L Troponin I < 0.050 (0.000-0.056) ng/mL Total Protein 7.1 (6.4-8.2) g/dL Albumin 3.7 (3.4-5.0) g/dL Globulin 3.4 (2.6-4.0) g/dL Albumin/Globulin Ratio 1.1 (0.9-1.6) Urine Color YELLOW Urine Appearance SLT CLOUDY Urine pH 6.5 (5.0-8.0) Ur Specific Thayer <= 1.005 (1.001-1.035) Urine Protein NEGATIVE (NEGATIVE) mg/dL Urine Glucose (UA) NEGATIVE (NEGATIVE) mg/dL Urine Ketones NEGATIVE (NEGATIVE) mg/dL Urine Occult Blood NEGATIVE (NEGATIVE) Urine Nitrite NEGATIVE (NEGATIVE) Urine Bilirubin NEGATIVE (NEGATIVE) Urine Urobilinogen 0.2 (<2.0) EU/dL Ur Leukocyte Esterase SMALL H (NEGATIVE) Urine RBC 0-1 (0-2/HPF) Urine WBC 5-8 (0-5/HPF) Ur Epithelial Cells RARE (NONE-FEW) Urine Bacteria FEW (NEGATIVE) - Re-Assessments/Exams Free Text/Narrative Re-Assessment/Exam: 01/25/21 20:40 The patient states now that she was not dizzy in the waiting room and she has not been dizzy since she has been here. She also states that she is hungry so working to feed her and let her go home. She does admit she gets kind of scared being home alone. She just can't figure out the pains in her lower legs. She states her primary doctor can't either. 01/25/21 20:42 Departure - Departure Time of Disposition: 20:42 Disposition: Home, Self-Care 01 Condition: Good Clinical Impression: Peripheral neurogenic pain - Discharge Information Referrals: PCP,None [Primary Care Provider] - Juan Kruse MD [Ordering Only Provider] - Forms: ED Department Discharge Additional Instructions: The following information is given to patients seen in the emergency department who are being discharged to home. This information is to outline your options for follow-up care. We provide all patients seen in our emergency department with a follow-up referral. The need for follow-up, as well as the timing and circumstances, are variable depending upon the specifics of your emergency department visit. If you don't have a primary care physician on staff, we will provide you with a referral. We always advise you to contact your personal physician following an emergency department visit to inform them of the circumstance of the visit and for follow-up with them and/or the need for any referrals to a consulting specialist. The emergency department will also refer you to a specialist when appropriate. This referral assures that you have the opportunity for follow-up care with a specialist. All of these measure are taken in an effort to provide you with optimal care, which includes your follow-up. Under all circumstances we always encourage you to contact your private physician who remains a resource for coordinating your care. When calling for follow-up care, please make the office aware that this follow-up is from your recent emergency room visit. If for any reason you are refused follow-up, please contact the [facility] Emergency Department at and asked to speak to the emergency department charge nurse. 1. Follow-up with Dr. Reyes regarding the pains in your lower legs. Sepsis Event Note (ED) - Evaluation Sepsis Screening Result: No Definite Risk - Focused Exam Vital Signs: Vital Signs Temp Pulse Resp BP Pulse Ox 01/25/21 19:15 36.7 C 72 18 175/82 H 96
--- NOTE | 2021-01-25 19:58 | PCM.EKG ---
#1 Interpretation EKG Interpretation Comments: Heart rate = 68 bpm, normal sinus rhythm, normal QRS interval, no STEMI. EKG and rhythm strip interpreted by me at 1953
[2021-01-25 20:22] LABS: CARBON DIOXIDE,CO2 25.4 mmol/L (21.0-32.0); CHLORIDE,CL 99 mmol/L (98-107); GLUCOSE RANDOM 106 mg/dL (74-106); POTASSIUM,K 4.2 mmol/L (3.5-5.1); SODIUM,NA 134 mmol/L (136-145)
[2021-01-25 20:27] LABS: BLOOD UREA NITROGEN,BUN 20 mg/dL (7.0-18.0)
== END 2021-01-25 21:25 | disposition home or self-care (01) ==
LOC: MW.ED 18:37
DX: G62.9 Polyneuropathy, unspecified (principal); Z88.0 Allergy status to penicillin; Z79.899 Other long term (current) drug therapy
CPT/HCPCS: 36415; 80053; 81001; 84484; 85025; 93010; 99282; 99284

== ENCOUNTER 2021-09-13 18:17 | Emergency (ER) | payer MEDICARE, BC ==
--- NOTE | 2021-09-13 20:08 | EDM.PDOC ---
ED HPI GENERAL MEDICAL PROBLEM - General Chief Complaint: Genitourinary Problem Stated Complaint: BLOOD IN URINE Time Seen by Provider: 09/13/21 19:24 Source of Information: Reports: Patient History Limitations: Reports: No Limitations - History of Present Illness INITIAL COMMENTS - FREE TEXT/NARRATIVE: HISTORY AND PHYSICAL: History of present illness: The patient is an 86-year-old female with a history of suprapubic catheter presents to the emergency department with complaints of blood and blood clots in the catheter bag. Patient states around 530 she noticed some blood in it jumped in the shower and upon completing her shower noticed that her urinary bag was slightly full of blood clots. She emptied the bag. She states that she has had a little bit of lower abdominal pain. No fever. The patient did have Nitrofurantoin in August 21- for a urinary tract infection. Patient states that upon completion of the antibiotic she did not have any symptoms of blood or lower abdominal discomfort. Review of systems: As per history of present illness and below otherwise all systems reviewed and negative. Past medical history: As per history of present illness and as reviewed below otherwise noncontributory. Surgical history: As per history of present illness and as reviewed below otherwise noncontributory. Social history: See social history for further information Family history: As per history of present illness and as reviewed below otherwise noncontributory. Physical exam: General: Well developed and well nourished. Alert and orientated x 3. Nontoxic in appearance and in no acute distress. Vital signs are stable and have been reviewed by me. Nursing notes were reviewed. HEENT: Atraumatic, normocephalic, pupils equal and reactive bilaterally, negative for conjunctival pallor or scleral icterus, mucous membranes moist, TMs normal bilaterally, throat clear, neck supple, nontender, trachea midline. No drooling or trismus noted. No meningeal signs. No hot potato voice noted. Lungs: Clear to auscultation bilaterally. No wheezes, rales, or rhonchi. Chest nontender. Normal work of breathing, no accessory muscles used. Heart: S1S2, regular rate and rhythm without overt murmur, gallops, or rubs. No JVD. No peripheral edema Abdomen: Soft, nondistended, nontender. Normoactive bowel sounds. Negative for masses or costovertebral tenderness. Noted suprapubic catheter with some blood around the insertion site. Skin: Intact, warm, dry. No lesions or rashes noted. Hematologic: No petechiae or purpra. Mucosa appropriate color and normal nail bed color and refill. Extremities: Atraumatic, moves all extremities per self without difficulty or deficits, negative for cords or calf pain. Neurovascular unremarkable. Neuro: Awake, alert, oriented. Cranial nerves II through XII unremarkable. Cerebellum unremarkable. Exam nonfocal. Psychiatric: Mood and affect are appropriate. Normal thought process. Answering questions appropriately. Notes: *This patient was seen and evaluated during the 2019 SARS-CoV-2 novel coronavirus pandemic period. Community viral transmission is ongoing at time of this encounter and the emergency department is operating under pandemic response procedures. As stated above the patient is an 86-year-old who is has a suprapubic catheter and normally gets the catheter changed every 4 weeks without incident. The patient had her catheter changed on the . In order to ascertain whether the patient has a true urinary tract infection we will need to change her catheter. I did explain this to her and she was agreeable with the plan. The patient's prepubic catheter was changed without incident. The patient's urinalysis was clear of infection. The patient's urine is clear and the catheter tubing at present. The patient is not in any pain when she is lying down, sitting or standing at present. I have instructed the patient that she needs to follow-up with her primary care or whoever is going to manage her suprapubic catheter to let them know that she had this hematuria. I told the patient that she needs to return if this would happen again. The patient is agreeable with this discharge plan. I have talked with the patient about today's findings, in addition to providing specific details for plan of care. Reassessment at the time of disposition demonstrates that the patient is in no acute distress. The patient is stable for discharge, counseling was provided and we discussed in great detail signs and symptoms that would prompt them to return to the Emergency Department. Medication, follow up and supportive care measures were reviewed and discussed. Voices understanding and is agreeable to plan of care. Denies any further questions or concerns at this time. Diagnostics: Urinalysis Impression: Gross hematuria Plan: 1. You were evaluated today on an emergent basis. Your concerns of blood in your suprapubic catheter tubing and bag was evaluated with changing your pubic catheter and obtaining a urinalysis. Your urinalysis not indicate a urine infection. You do not need an antibiotic. You do need to follow-up with whoever is going to manage your catheter and let them know that you had blood in your catheter and that indeed he did not have an Juni tract infection. 2. You can alternate Tylenol and ibuprofen as needed for pain and fever management. 3. We encourage you to follow up with your primary care provider and/or recommended specialist in the next few days for re-evaluation and further care/management. 4. If your symptoms should worsen, new symptoms develop or any of the signs and symptoms we discussed should arise please return to the emergency room or call 911 (if needed). Definitive disposition and diagnosis as appropriate pending reevaluation and review of above. Treatments CATALOG LIBRARY ASSISTANT: Reports: Acetaminophen, Urinary Catheter in Place Other Treatments CATALOG LIBRARY ASSISTANT: patient has a chronic superpubic catheter it was last changed 09/05/21. - Related Data Allergies Allergy/AdvReac Type Severity Reaction Status Date / Time Penicillins Allergy Diarrhea Verified 01/25/21 19:13 Home Meds: Home Meds Zolpidem [Ambien] 0.5 dose PO BEDTIME PRN 03/07/20 [History] Melatonin 3 mg PO ASDIRECTED 07/27/20 [History] Multivitamin [Multivitamins] 1 each PO DAILY 07/27/20 [History] Psyllium Husk (With Sugar) [Metamucil Powder] 2 tbsp PO TID 14 Days #1042 powder 08/04/20 [Rx] Lactobacillus 3/Fos/Pantethine [Probiotic & Acidophilus] 1 each PO DAILY 07/07 [History] Gabapentin [Neurontin] 100 mg PO DAILY 01/25/21 [History] Magnesium 200 mg PO ASDIRECTED 01/25/21 [History] Past Medical History - Past Health History Medical/Surgical History: Denies Medical/Surgical History HEENT History: Reports: Impaired Vision Cardiovascular History: Reports: None Respiratory History: Reports: None Gastrointestinal History: Reports: Diverticulosis, Other (See Below) Other Gastrointestinal History: colitis Genitourinary History: Reports: None Other Genitourinary History: states had blood in urine and was unable to urinate in 2019 and has had a zuniga catheter in place since that time 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 Musculoskeletal History: Reports: Arthritis Other Musculoskeletal History: fractured little finger left hand Neurological History: Reports: None Psychiatric History: Reports: None Endocrine/Metabolic History: Reports: None Other Endocrine/Metabolic History: states diabetes is controlled by diet Hematologic History: Reports: Other (See Below) Other Hematologic History: low potassium in past Immunologic History: Reports: None Oncologic (Cancer) History: Reports: None Dermatologic History: Reports: None - Infectious Disease History Infectious Disease History: Reports: None Other Infectious Disease History: is unsure of hx - Past Surgical History Head Surgeries/Procedures: Reports: None HEENT Surgical History: Reports: None Cardiovascular Surgical History: Reports: None Respiratory Surgical History: Reports: None GI Surgical History: Reports: None Other GI Surgeries/Procedures: states had a laparoscopy years ago by Dr. Rothman Female Surgical History: Reports: None Other Female Surgeries/Procedures: states had a left lumpectomy Endocrine Surgical History: Reports: None Neurological Surgical History: Reports: None Musculoskeletal Surgical History: Reports: None Other Musculoskeletal Surgeries/Procedures:: surgery little finger left hand Oncologic Surgical History: Reports: None Dermatological Surgical History: Reports: None Social & Family History - Family History Family Medical History: No Pertinent Family History - Caffeine Use Caffeine Use: Reports: None ED ROS GENERAL - Review of Systems Review Of Systems: Comprehensive ROS is negative, except as noted in HPI. ED EXAM, RENAL/ - Physical Exam Exam: See Below (See dictation) Course - Vital Signs Last Recorded V/S: Last Vital Signs Temp 97.2 F 09/13/21 19:25 Pulse 68 09/13/21 19:25 Resp 24 H 09/13/21 19:25 BP 114/87 09/13/21 19:25 Pulse Ox 96 09/13/21 19:25 - Orders/Labs/Meds Labs: Laboratory Tests 09/13/21 Range/Units 20:29 Urine Color YELLOW Urine Appearance HAZY Urine pH 5.5 (5.0-8.0) Ur Specific Blanch 1.010 (1.001-1.035) Urine Protein NEGATIVE (NEGATIVE) mg/dL Urine Glucose (UA) NEGATIVE (NEGATIVE) mg/dL Urine Ketones NEGATIVE (NEGATIVE) mg/dL Urine Occult Blood LARGE H (NEGATIVE) Urine Nitrite NEGATIVE (NEGATIVE) Urine Bilirubin NEGATIVE (NEGATIVE) Urine Urobilinogen 0.2 (<2.0) EU/dL Ur Leukocyte Esterase SMALL H (NEGATIVE) Urine RBC 15-20 (0-2/HPF) Urine WBC 5-8 (0-5/HPF) Ur Epithelial Cells FEW (NONE-FEW) Urine Bacteria FEW (NEGATIVE) Urine Mucus LIGHT (NONE-MOD) Departure - Departure Time of Disposition: 21:10 Disposition: Home, Self-Care 01 Condition: Good Clinical Impression: Hematuria Qualifiers: Hematuria type: gross Qualified Code(s): R31.0 - Gross hematuria - Discharge Information *PRESCRIPTION DRUG MONITORING PROGRAM REVIEWED*: Not Applicable *COPY OF PRESCRIPTION DRUG MONITORING REPORT IN PATIENT BRIGHT: Not Applicable Instructions: Indwelling Urinary Catheter Care, Adult Referrals: Juan Kruse MD [Primary Care Provider] - Forms: ED Department Discharge Additional Instructions: The following information is given to patients seen in the emergency department who are being discharged to home. This information is to outline your options for follow-up care. We provide all patients seen in our emergency department with a follow-up referral. The need for follow-up, as well as the timing and circumstances, are variable depending upon the specifics of your emergency department visit. If you don't have a primary care physician on staff, we will provide you with a referral. We always advise you to contact your personal physician following an emergency department visit to inform them of the circumstance of the visit and for follow-up with them and/or the need for any referrals to a consulting specialist. The emergency department will also refer you to a specialist when appropriate. This referral assures that you have the opportunity for follow-up care with a specialist. All of these measure are taken in an effort to provide you with optimal care, which includes your follow-up. Under all circumstances we always encourage you to contact your private physician who remains a resource for coordinating your care. When calling for follow-up care, please make the office aware that this follow-up is from your recent emergency room visit. If for any reason you are refused follow-up, please contact the [facility] Emergency Department at and asked to speak to the emergency department charge nurse. [facility] [address] [place] [id number] [facility] [address] [place] [address] Plan: 1. You were evaluated today on an emergent basis. Your concerns of blood in your suprapubic catheter tubing and bag was evaluated with changing your pubic catheter and obtaining a urinalysis. Your urinalysis not indicate a urine infection. You do not need an antibiotic. You do need to follow-up with whoever is going to manage your catheter and let them know that you had blood in your catheter and that indeed he did not have an Juni tract infection. 2. You can alternate Tylenol and ibuprofen as needed for pain and fever management. 3. We encourage you to follow up with your primary care provider and/or recommended specialist in the next few days for re-evaluation and further care/management. 4. If your symptoms should worsen, new symptoms develop or any of the signs and symptoms we discussed should arise please return to the emergency room or call 911 (if needed). Sepsis Event Note (ED) - Evaluation Sepsis Screening Result: No Definite Risk - Focused Exam Vital Signs: Vital Signs Temp Pulse Resp BP Pulse Ox 09/13/21 19:25 97.2 F 68 24 H 114/87 96
== END 2021-09-13 21:20 | disposition home or self-care (01) ==
LOC: MW.ED 18:17
DX: R31.0 Gross hematuria (principal); Z88.0 Allergy status to penicillin; Z79.899 Other long term (current) drug therapy
CPT/HCPCS: 51702; 81001; 99283-25

== ENCOUNTER 2021-12-27 00:01 | Emergency (ER) | payer MEDICARE, BC ==
[2021-12-27] MEDS ORDERED: Ondansetron 4 MG/2 ML SDV IVPUSH ONE (00:27)
[2021-12-27] MEDS ORDERED: Sodium Chloride 0.9% 2.5 ML Syringe FLUSH PRN (00:27)
[2021-12-27] MEDS ORDERED: Sodium Chloride 0.9% 1,000 ML IV ONE (00:27)
[2021-12-27] MEDS ORDERED: Sodium Chloride 0.9% 10 ML Syringe FLUSH PRN (00:27)
[2021-12-27 01:15] LABS: BLOOD UREA NITROGEN,BUN 21 mg/dL (7.0-18.0); CARBON DIOXIDE,CO2 26.7 mmol/L (21.0-32.0); CHLORIDE,CL 97 mmol/L (98-107); ESTIMATED GFR 59.1 ml/min; GLUCOSE RANDOM 168 mg/dL (74-106); LIPASE 65 U/L (73-393); POTASSIUM,K 3.9 mmol/L (3.5-5.1); SODIUM,NA 135 mmol/L (136-145)
[2021-12-27] MEDS ORDERED: Iopamidol 755 MG/ML 500 ML Multipack Bottle IVPUSH ONE (01:32)
[2021-12-27] MEDS ORDERED: Alum Hydro/Mag Hydro/Simeth XS 15 ML, Lidocaine 2% 5 ML PO ONE ×2 (02:00)
[2021-12-27] MEDS ORDERED: LORazepam 2 MG/ML SDV IVPUSH ONE (04:36)
[2021-12-27] MEDS ORDERED: cefTRIAXone 1 GM in Sodium Chloride 0.9% 50 ML IV ONE (06:01)
== END 2021-12-27 06:40 ==
LOC: MW.ED 00:01
DX: K44.0 Diaphragmatic hernia with obstruction, without gangrene (principal); Z88.0 Allergy status to penicillin; Z20.822 Contact with and (suspected) exposure to COVID-19
CPT/HCPCS: 36415; 43752; 74177; 80053; 81001; 83690; 84484; 85025; 93005; 96365; 96375; 99285; A9270; J0696; J2060; J2405; J7030; Q9967; U0002; 93010; J3490

== ENCOUNTER 2022-04-14 13:28 | Observation (INO) | payer MEDICARE, BC ==
[2022-04-14] MEDS ORDERED: Sodium Chloride 0.9% 10 ML Syringe FLUSH PRN (14:15)
[2022-04-14] MEDS ORDERED: Sodium Chloride 0.9% 2.5 ML Syringe FLUSH PRN (14:15)
[2022-04-14 14:44] LABS: BLOOD UREA NITROGEN,BUN 18 mg/dL (7.0-18.0); CARBON DIOXIDE,CO2 26.8 mmol/L (21.0-32.0); CHLORIDE,CL 99 mmol/L (98-107); ESTIMATED GFR 70 mL/min (>60); GLUCOSE RANDOM 134 mg/dL (74-106); POTASSIUM,K 4.3 mmol/L (3.5-5.1); SODIUM,NA 135 mmol/L (136-145)
[2022-04-14 15:30] LABS: CORONAVIRUS COVID-19 NAA NEGATIVE (NEGATIVE); INFLUENZA A NAA NEGATIVE (NEGATIVE); INFLUENZA B NAA NEGATIVE (NEGATIVE)
[2022-04-14] MEDS ORDERED: Meclizine 25 MG Tab PO ONE (15:45)
[2022-04-14] MEDS ORDERED: Iopamidol 755 MG/ML 500 ML Multipack Bottle IVPUSH STA (17:43)
[2022-04-14] MEDS ORDERED: Acetaminophen 325 MG Tab PO PRN (20:47)
[2022-04-14] MEDS ORDERED: Albuterol/Ipratropium 3.0-0.5 MG/3 ML Neb Soln NEB PRN (20:48)
[2022-04-14] MEDS ORDERED: ZOLPIDEM 5 MG PO PRN ×2 (21:52→22:18)
[2022-04-14] MEDS ORDERED: Non-Formulary Medication 1 Each (Melatonin [Melatonin] 3 MG Capsule) PO SCH (22:00)
[2022-04-14] MEDS: Lactated Ringers 1,000 ML IV SCH (22:07)
[2022-04-14] MEDS: Enoxaparin 40 MG/0.4 ML Syringe SUBCUT SCH (22:07)
[2022-04-14] MEDS: Melatonin 3 MG Tab PO SCH (22:52)
[2022-04-15] MEDS: Ondansetron 4 MG/2 ML SDV IVPUSH PRN ×2 (00:34→04:26)
[2022-04-15] MEDS: Lactated Ringers 1,000 ML IV SCH ×2 (05:42→20:17)
[2022-04-15] MEDS: Pantoprazole 40 MG in Sodium Chloride 0.9% 10 ML IVPUSH SCH ×2 (06:14→08:15)
[2022-04-15 06:29] LABS: CARBON DIOXIDE,CO2 30.8 mmol/L (21.0-32.0); POTASSIUM,K 3.8 mmol/L (3.5-5.1)
[2022-04-15] MEDS ORDERED: Promethazine 25 MG/ML SDV IM ONE (07:35)
[2022-04-15] MEDS: cefTRIAXone 1 GM in Sodium Chloride 0.9% 50 ML IV SCH (11:39)
[2022-04-15] MEDS ORDERED: Iopamidol 755 MG/ML 500 ML Multipack Bottle IVPUSH STA (12:43)
[2022-04-15] MEDS ORDERED: Mirtazapine 15 MG Tab**OWN MED PO SCH (21:00)
[2022-04-15] MEDS: Enoxaparin 40 MG/0.4 ML Syringe SUBCUT SCH (21:17)
[2022-04-15] MEDS: Melatonin 3 MG Tab PO SCH (22:46)
[2022-04-16] MEDS: Lactated Ringers 1,000 ML IV SCH (05:23)
[2022-04-16 06:34] LABS: CARBON DIOXIDE,CO2 26.2 mmol/L (21.0-32.0)
[2022-04-16] MEDS: Pantoprazole 40 MG in Sodium Chloride 0.9% 10 ML IVPUSH SCH (08:32)
[2022-04-16] MEDS: cefTRIAXone 1 GM in Sodium Chloride 0.9% 50 ML IV SCH (10:21)
== END 2022-04-16 16:30 | disposition home health service (06) ==
LOC: MW.ED 13:28 → MW.MS 19:00
PROVIDERS: ADMIT Student in an Organized Health Care Education/Training Program; ATTEND Student in an Organized Health Care Education/Training Program
DX: R42 Dizziness and giddiness (principal); K44.9 Diaphragmatic hernia without obstruction or gangrene; N39.0 Urinary tract infection, site not specified; H54.7 Unspecified visual loss; E11.9 Type 2 diabetes mellitus without complications; K21.9 Gastro-esophageal reflux disease without esophagitis; Z46.6 Encounter for fitting and adjustment of urinary device; Z20.822 Contact with and (suspected) exposure to COVID-19; Z88.0 Allergy status to penicillin
CPT/HCPCS: 0240U; 36415; 70450; 70496; 70498; 70551; 71045; 74178; 80048; 80053; 81001; 83735; 84100; 84443; 84484; 85025; 87086; 87088; 87186; 93005; 93306; 96365; 96372; 96375; 96376; 97112; 97116; 97163; A9270; C9113; G0378; J0696; J1650; J2405; J2550; J3490; J7120; Q9967

== ENCOUNTER 2022-07-18 22:12 | Emergency (ER) | payer MEDICARE, BC | END 2022-07-18 22:18 | disposition left against medical advice (07) | LOC: MW.ED 22:12 | DX: Z53.21 Procedure and treatment not carried out due to patient leaving prior to being seen by health care provider (principal) ==